=== PATIENT | female | born 1945 | race African-American/Black ===

== ENCOUNTER 2017-01-28 18:45 | Inpatient (IN) | payer MEDICARE, MEDICAID ==
[~2017-01-28] VITALS: Ht 170.2 cm; Wt 59.0 kg
[~2017-01-28 18:45] MED LIST: AMIT10TA6 PO; AMLO2.5T45 *; ATOR10TA69 PO; ATOR40TA70 PO; CLON0.1T PO; CLOP75TA33 PO; DOXA2TAB2 PO; ESCI10TA54 PO; GABA-531 PO; LEVE500T19 PO; LOSA50TA20 PO
[2017-01-28] MEDS ORDERED: CLONIDINE 0.1MG TABLET PO PRN (19:45)
[2017-01-28 20:00] VITALS: BP_SYST 143; BP_SYST 161; BP_DIAS 69
[2017-01-28] MEDS ORDERED: IPRATROPIUM/ALBUTEROL 0.5-3(2.5)MG/3ML NEB HHN PRN (20:00)
[2017-01-28] MEDS ORDERED: ONDANSETRON HCL 4MG/2ML VIAL IV PRN (20:00)
[2017-01-28] MEDS ORDERED: LORAZEPAM 2MG/ML CPJ IV PRN (20:00)
[2017-01-28] MEDS ORDERED: DEXTROSE 50% WATER 50ML SYRINGE IV PRN (20:00)
[2017-01-28] MEDS ORDERED: ACETAMINOPHEN 650MG/20.3ML UDC PO PRN (20:00)
[2017-01-28] MEDS ORDERED: MORPHINE SULFATE 2 MG/ML CPJ (NOT FOR IM USE) IV PRN (20:00)
[2017-01-28] MEDS ORDERED: DIPHENHYDRAMINE 50MG/ML VIAL IV PRN (20:00)
[2017-01-28] MEDS: SODIUM CHLORIDE 0.45% 1,000 ML IV SCH (20:18)
[2017-01-28] MEDS: INSULIN LISPRO 100 UNITS/ML SUBCUT SCH (21:00)
[2017-01-28] MEDS: BLOOD SUGAR DIAGNOSTIC STRIP TEST SCH (21:00)
[2017-01-28] MEDS: HYDRALAZINE HCL 25MG TABLET PO SCH (22:00)
[2017-01-28] MEDS: GABAPENTIN 300MG CAPSULE PO SCH (22:15)
[2017-01-28] MEDS: ATORVASTATIN CALCIUM 40MG TABLET PO SCH (22:15)
[2017-01-28] MEDS: AMLODIPINE 5MG TABLET PO SCH (22:16)
[2017-01-28] MEDS: LEVETIRACETAM 500MG TABLET PO SCH (22:16)
[2017-01-28] MEDS: TRAZODONE HCL 50MG TABLET PO SCH (22:16)
[2017-01-29] MEDS ORDERED: INFLUENZA VIRUS VACCINE 0.5ML SYR IM ONE (02:15)
[2017-01-29] MEDS: GABAPENTIN 300MG CAPSULE PO SCH ×3 (06:34→21:01)
[2017-01-29] MEDS: HYDRALAZINE HCL 25MG TABLET PO SCH ×3 (06:34→21:02)
[2017-01-29] MEDS: BLOOD SUGAR DIAGNOSTIC STRIP TEST SCH ×4 (06:37→21:02)
[2017-01-29 07:05] LABS: HEMATOCRIT 26.5 % (36.0-48.0); HEMOGLOBIN 8.5 g/dL (12.0-16.0); MEAN CORPUSCULAR HEMOGLOBIN 27.3 pg (28.0-32.0); MEAN CORPUSCULAR HGB CONC 31.9 g/dL (31.0-37.0); MEAN CORPUSCULAR VOLUME 85.5 fL (81.0-99.0); PLATELET 130 x1000/uL (130-400); RED CELL DISTRIBUTION WIDTH 12.2 % (11.6-14.6); WHITE BLOOD COUNT 3.9 x1000/uL (4.5-11.0)
[2017-01-29 08:00] VITALS: BP 121/76
[2017-01-29 08:05] LABS: CALCIUM 8.1 mg/dL (8.5-10.1)
[2017-01-29] MEDS: APIXABAN 2.5 MG TABLET PO SCH ×2 (08:16→16:31)
[2017-01-29] MEDS: ASPIRIN 81MG EC TABLET PO SCH (08:16)
[2017-01-29] MEDS: ZINC SULFATE 220 MG ( 50 ) CAPSULE PO SCH (08:16)
[2017-01-29] MEDS: FAMOTIDINE 20MG TABLET PO SCH (08:16)
[2017-01-29] MEDS: AMLODIPINE 5MG TABLET PO SCH ×2 (08:16→21:00)
[2017-01-29] MEDS: LEVETIRACETAM 500MG TABLET PO SCH ×2 (08:16→21:01)
[2017-01-29] MEDS: FOLIC ACID 1MG TABLET PO SCH (08:16)
[2017-01-29] MEDS: INSULIN LISPRO 100 UNITS/ML SUBCUT SCH ×4 (08:17→21:03)
[2017-01-29] MEDS: SODIUM CHLORIDE 0.45% 1,000 ML IV SCH ×2 (08:48→21:04)
[2017-01-29] MEDS ORDERED: TRAMADOL 50MG TABLET PO PRN (09:30)
[2017-01-29] MEDS: HYDROCODONE/ACETAMINOPHEN 5/325MG TABLET PO PRN ×2 (14:41→21:01)
[2017-01-29] MEDS ORDERED: HYDROCODONE/ACETAMINOPHEN 5/325MG TABLET PO PRN (14:45)
[2017-01-29 20:00] VITALS: BP 112/76
[2017-01-29] MEDS: ATORVASTATIN CALCIUM 40MG TABLET PO SCH (21:01)
[2017-01-29] MEDS: TRAZODONE HCL 50MG TABLET PO SCH (21:01)
[2017-01-30] MEDS: GABAPENTIN 300MG CAPSULE PO SCH ×3 (05:41→21:45)
[2017-01-30] MEDS: HYDRALAZINE HCL 25MG TABLET PO SCH ×3 (05:41→21:46)
[2017-01-30] MEDS: HYDROCODONE/ACETAMINOPHEN 5/325MG TABLET PO PRN ×3 (05:42→20:13)
[2017-01-30] MEDS: BLOOD SUGAR DIAGNOSTIC STRIP TEST SCH ×4 (06:22→21:50)
[2017-01-30] MEDS: INSULIN LISPRO 100 UNITS/ML SUBCUT SCH ×4 (06:22→21:57)
[2017-01-30 08:00] VITALS: BP 136/99
[2017-01-30] MEDS: FAMOTIDINE 20MG TABLET PO SCH (09:00)
[2017-01-30] MEDS: LEVETIRACETAM 500MG TABLET PO SCH ×2 (09:00→21:45)
[2017-01-30] MEDS: ASPIRIN 81MG EC TABLET PO SCH (09:00)
[2017-01-30] MEDS: ZINC SULFATE 220 MG ( 50 ) CAPSULE PO SCH (09:00)
[2017-01-30] MEDS: FOLIC ACID 1MG TABLET PO SCH (09:01)
[2017-01-30] MEDS: APIXABAN 2.5 MG TABLET PO SCH ×2 (09:01→17:25)
[2017-01-30] MEDS: AMLODIPINE 5MG TABLET PO SCH ×2 (09:01→21:46)
[2017-01-30 20:00] VITALS: BP 123/78
[2017-01-30] MEDS: ATORVASTATIN CALCIUM 40MG TABLET PO SCH (21:45)
[2017-01-30] MEDS: TRAZODONE HCL 50MG TABLET PO SCH (21:47)
[2017-01-31] MEDS: BLOOD SUGAR DIAGNOSTIC STRIP TEST SCH ×4 (06:04→21:13)
[2017-01-31] MEDS: INSULIN LISPRO 100 UNITS/ML SUBCUT SCH ×4 (06:04→21:13)
[2017-01-31] MEDS: GABAPENTIN 300MG CAPSULE PO SCH ×3 (06:06→21:07)
[2017-01-31] MEDS: HYDRALAZINE HCL 25MG TABLET PO SCH ×3 (06:07→21:08)
[2017-01-31 08:00] VITALS: BP 140/60
[2017-01-31] MEDS ORDERED: MUPIROCIN 2% OINT 22GM TOP SCH (09:00)
[2017-01-31] MEDS: LEVETIRACETAM 500MG TABLET PO SCH ×2 (10:04→21:07)
[2017-01-31] MEDS: AMLODIPINE 5MG TABLET PO SCH ×2 (10:04→21:09)
[2017-01-31] MEDS: ASPIRIN 81MG EC TABLET PO SCH (10:04)
[2017-01-31] MEDS: FOLIC ACID 1MG TABLET PO SCH (10:04)
[2017-01-31] MEDS: APIXABAN 2.5 MG TABLET PO SCH ×2 (10:04→18:01)
[2017-01-31] MEDS: FAMOTIDINE 20MG TABLET PO SCH (10:04)
[2017-01-31] MEDS: ZINC SULFATE 220 MG ( 50 ) CAPSULE PO SCH (10:04)
[2017-01-31] MEDS: MUPIROCIN 2% OINT 22GM TOP SCH ×2 (10:05→18:03)
[2017-01-31] MEDS: HYDROCODONE/ACETAMINOPHEN 5/325MG TABLET PO PRN ×3 (11:14→23:42)
[2017-01-31 11:15] VITALS: BP 122/85
[2017-01-31 13:30] VITALS: BP 132/63
[2017-01-31 17:30] VITALS: BP 143/59
[2017-01-31 20:00] VITALS: BP 141/72
[2017-01-31] MEDS: ATORVASTATIN CALCIUM 40MG TABLET PO SCH (21:07)
[2017-01-31] MEDS: TRAZODONE HCL 50MG TABLET PO SCH (21:07)
[2017-02-01] VITALS (7 sets, daily range): BP systolic 116–130; BP diastolic 53–91
[2017-02-01] MEDS: HYDRALAZINE HCL 25MG TABLET PO SCH ×3 (06:06→22:00)
[2017-02-01] MEDS: GABAPENTIN 300MG CAPSULE PO SCH ×3 (06:06→21:46)
[2017-02-01] MEDS: POLYVINYL ALCOHOL OPHTH DROPS 15ML BOTHEYE PRN ×3 (06:06→21:26)
[2017-02-01 06:17] LABS: BASOPHILS % 0.8 % (0.0-2.0); EOSINOPHILS % 3.1 % (0.0-5.0); HEMATOCRIT. 24.3 % (36.0-48.0); HEMOGLOBIN. 7.8 g/dL (12.0-16.0); LYMPHOCYTES % 26.7 % (20.0-50.0); MEAN CORPUSCULAR HEMOGLOBIN 27.8 pg (28.0-32.0); MEAN CORPUSCULAR HGB CONC 32.1 g/dL (31.0-37.0); MEAN CORPUSCULAR VOLUME 86.7 fL (81.0-99.0); MEAN PLATELET VOLUME 8.7 fl (7.4-10.4); MONOCYTES % 9.3 % (2.0-8.0); NEUTROPHILS % 60.1 % (40.0-76.0); PLATELET 116 x1000/uL (130-400); RED CELL DISTRIBUTION WIDTH 12.3 % (11.6-14.6)
[2017-02-01] MEDS: BLOOD SUGAR DIAGNOSTIC STRIP TEST SCH ×4 (06:37→21:47)
[2017-02-01] MEDS: INSULIN LISPRO 100 UNITS/ML SUBCUT SCH ×4 (06:37→22:05)
[2017-02-01 06:59] LABS: CALCIUM 7.8 mg/dL (8.5-10.1)
[2017-02-01] MEDS: FAMOTIDINE 20MG TABLET PO SCH (08:33)
[2017-02-01] MEDS: LEVETIRACETAM 500MG TABLET PO SCH ×2 (08:33→21:46)
[2017-02-01] MEDS: APIXABAN 2.5 MG TABLET PO SCH (08:33)
[2017-02-01] MEDS: FOLIC ACID 1MG TABLET PO SCH (08:33)
[2017-02-01] MEDS: ZINC SULFATE 220 MG ( 50 ) CAPSULE PO SCH (08:33)
[2017-02-01] MEDS: ASPIRIN 81MG EC TABLET PO SCH (08:33)
[2017-02-01] MEDS: AMLODIPINE 5MG TABLET PO SCH ×2 (08:34→21:46)
[2017-02-01] MEDS: HYDROCODONE/ACETAMINOPHEN 5/325MG TABLET PO PRN ×2 (08:34→16:34)
[2017-02-01] MEDS: MUPIROCIN 2% OINT 22GM TOP SCH ×2 (08:37→17:38)
[2017-02-01] MEDS: ATORVASTATIN CALCIUM 40MG TABLET PO SCH (21:46)
[2017-02-01] MEDS: TRAZODONE HCL 50MG TABLET PO SCH (21:46)
[2017-02-02] MEDS: HYDROCODONE/ACETAMINOPHEN 5/325MG TABLET PO PRN ×3 (02:27→15:34)
[2017-02-02] MEDS: HYDRALAZINE HCL 25MG TABLET PO SCH ×3 (06:31→22:00)
[2017-02-02] MEDS: GABAPENTIN 300MG CAPSULE PO SCH ×3 (06:31→22:46)
[2017-02-02] MEDS: BLOOD SUGAR DIAGNOSTIC STRIP TEST SCH ×4 (06:39→21:08)
[2017-02-02] MEDS: INSULIN LISPRO 100 UNITS/ML SUBCUT SCH ×4 (06:39→22:51)
[2017-02-02 07:11] LABS: BASOPHILS % 0.8 % (0.0-2.0); EOSINOPHILS % 3.4 % (0.0-5.0); HEMATOCRIT. 29.2 % (36.0-48.0); HEMOGLOBIN. 9.5 g/dL (12.0-16.0); LYMPHOCYTES % 32.7 % (20.0-50.0); MEAN CORPUSCULAR HEMOGLOBIN 27.9 pg (28.0-32.0); MEAN CORPUSCULAR HGB CONC 32.6 g/dL (31.0-37.0); MEAN CORPUSCULAR VOLUME 85.8 fL (81.0-99.0); MEAN PLATELET VOLUME 9.1 fl (7.4-10.4); MONOCYTES % 9.9 % (2.0-8.0); NEUTROPHILS % 53.2 % (40.0-76.0); PLATELET 130 x1000/uL (130-400); RED BLOOD CELL COUNT 3.41 mill/uL (4.2-5.4); WHITE BLOOD COUNT 4.3 x1000/uL (4.5-11.0)
[2017-02-02 07:31] LABS: CALCIUM 8.1 mg/dL (8.5-10.1); MAGNESIUM 2.1 mg/dL (1.8-2.4)
[2017-02-02 08:00] VITALS: BP 135/67
[2017-02-02] MEDS: ZINC SULFATE 220 MG ( 50 ) CAPSULE PO SCH (08:17)
[2017-02-02] MEDS: ASPIRIN 81MG EC TABLET PO SCH (08:18)
[2017-02-02] MEDS: FAMOTIDINE 20MG TABLET PO SCH (08:18)
[2017-02-02] MEDS: MUPIROCIN 2% OINT 22GM TOP SCH ×2 (08:18→16:22)
[2017-02-02] MEDS: AMLODIPINE 5MG TABLET PO SCH ×2 (08:18→21:09)
[2017-02-02] MEDS: LEVETIRACETAM 500MG TABLET PO SCH ×2 (08:18→21:09)
[2017-02-02] MEDS: FOLIC ACID 1MG TABLET PO SCH (08:18)
[2017-02-02] MEDS: POLYVINYL ALCOHOL OPHTH DROPS 15ML BOTHEYE PRN ×2 (08:23→16:23)
[2017-02-02 20:00] VITALS: BP 155/71
[2017-02-02] MEDS: ATORVASTATIN CALCIUM 40MG TABLET PO SCH (21:09)
[2017-02-02] MEDS: TRAZODONE HCL 50MG TABLET PO SCH (21:09)
[2017-02-03 06:13] LABS: BASOPHILS % 0.6 % (0.0-2.0); HEMATOCRIT. 29.7 % (36.0-48.0); HEMOGLOBIN. 9.7 g/dL (12.0-16.0); LYMPHOCYTES % 33.2 % (20.0-50.0); MEAN CORPUSCULAR HEMOGLOBIN 28.1 pg (28.0-32.0); MEAN CORPUSCULAR HGB CONC 32.8 g/dL (31.0-37.0); MEAN CORPUSCULAR VOLUME 85.9 fL (81.0-99.0); MEAN PLATELET VOLUME 9.7 fl (7.4-10.4); MONOCYTES % 9.6 % (2.0-8.0); NEUTROPHILS % 52.6 % (40.0-76.0); PLATELET 147 x1000/uL (130-400); RED BLOOD CELL COUNT 3.46 mill/uL (4.2-5.4); RED CELL DISTRIBUTION WIDTH 12.9 % (11.6-14.6); WHITE BLOOD COUNT 4.6 x1000/uL (4.5-11.0)
[2017-02-03] MEDS: HYDRALAZINE HCL 25MG TABLET PO SCH ×3 (06:34→22:00)
[2017-02-03] MEDS: GABAPENTIN 300MG CAPSULE PO SCH ×3 (06:34→22:31)
[2017-02-03] MEDS: POLYVINYL ALCOHOL OPHTH DROPS 15ML BOTHEYE PRN (06:35)
[2017-02-03] MEDS: HYDROCODONE/ACETAMINOPHEN 5/325MG TABLET PO PRN ×2 (06:35→17:27)
[2017-02-03 06:38] LABS: CALCIUM 8.2 mg/dL (8.5-10.1)
[2017-02-03] MEDS: INSULIN LISPRO 100 UNITS/ML SUBCUT SCH ×4 (06:38→21:00)
[2017-02-03] MEDS: BLOOD SUGAR DIAGNOSTIC STRIP TEST SCH ×4 (06:39→21:00)
[2017-02-03 08:00] VITALS: BP 135/72
[2017-02-03] MEDS: ZINC SULFATE 220 MG ( 50 ) CAPSULE PO SCH (08:33)
[2017-02-03] MEDS: AMLODIPINE 5MG TABLET PO SCH ×2 (08:33→22:27)
[2017-02-03] MEDS: FAMOTIDINE 20MG TABLET PO SCH (08:33)
[2017-02-03] MEDS: LEVETIRACETAM 500MG TABLET PO SCH ×2 (08:33→22:27)
[2017-02-03] MEDS: FOLIC ACID 1MG TABLET PO SCH (08:33)
[2017-02-03] MEDS: ASPIRIN 81MG EC TABLET PO SCH (08:33)
[2017-02-03] MEDS: MUPIROCIN 2% OINT 22GM TOP SCH ×2 (08:34→16:55)
[2017-02-03] MEDS ORDERED: LORAZEPAM 0.5MG TABLET PO PRN (16:00)
[2017-02-03] MEDS ORDERED: MORPHINE SULFATE 2 MG/ML CPJ (NOT FOR IM USE) IV PRN (16:00)
[2017-02-03] MEDS ORDERED: ACETAMINOPHEN 650MG/20.3ML UDC PO PRN (16:10)
[2017-02-03 20:00] VITALS: BP 115/50
[2017-02-03] MEDS: ATORVASTATIN CALCIUM 40MG TABLET PO SCH (22:27)
[2017-02-03] MEDS: TRAZODONE HCL 50MG TABLET PO SCH (22:27)
[2017-02-04] MEDS: GABAPENTIN 300MG CAPSULE PO SCH ×3 (06:22→21:51)
[2017-02-04] MEDS: HYDRALAZINE HCL 25MG TABLET PO SCH ×3 (06:23→21:52)
[2017-02-04] MEDS: BLOOD SUGAR DIAGNOSTIC STRIP TEST SCH ×4 (06:54→21:53)
[2017-02-04] MEDS: INSULIN LISPRO 100 UNITS/ML SUBCUT SCH ×4 (06:54→21:58)
[2017-02-04 07:17] LABS: BASOPHILS % 0.9 % (0.0-2.0); EOSINOPHILS % 3.9 % (0.0-5.0); HEMATOCRIT. 28.5 % (36.0-48.0); HEMOGLOBIN. 9.3 g/dL (12.0-16.0); MEAN CORPUSCULAR HGB CONC 32.7 g/dL (31.0-37.0); MEAN CORPUSCULAR VOLUME 85.7 fL (81.0-99.0); MEAN PLATELET VOLUME 9.5 fl (7.4-10.4); MONOCYTES % 9.2 % (2.0-8.0); PLATELET 140 x1000/uL (130-400); RED BLOOD CELL COUNT 3.32 mill/uL (4.2-5.4); RED CELL DISTRIBUTION WIDTH 12.7 % (11.6-14.6); WHITE BLOOD COUNT 4.5 x1000/uL (4.5-11.0)
[2017-02-04 08:00] VITALS: BP 124/59
[2017-02-04 08:13] LABS: CALCIUM 8.3 mg/dL (8.5-10.1)
[2017-02-04] MEDS: ZINC SULFATE 220 MG ( 50 ) CAPSULE PO SCH (08:19)
[2017-02-04] MEDS: ASPIRIN 81MG EC TABLET PO SCH (08:20)
[2017-02-04] MEDS: FAMOTIDINE 20MG TABLET PO SCH (08:20)
[2017-02-04] MEDS: FOLIC ACID 1MG TABLET PO SCH (08:20)
[2017-02-04] MEDS: LEVETIRACETAM 500MG TABLET PO SCH ×2 (08:20→21:52)
[2017-02-04] MEDS: AMLODIPINE 5MG TABLET PO SCH ×2 (08:20→21:52)
[2017-02-04] MEDS: POLYVINYL ALCOHOL OPHTH DROPS 15ML BOTHEYE PRN (08:23)
[2017-02-04] MEDS: MUPIROCIN 2% OINT 22GM TOP SCH ×2 (08:23→17:47)
[2017-02-04] MEDS: HYDROCODONE/ACETAMINOPHEN 5/325MG TABLET PO PRN (12:06)
[2017-02-04] MEDS: TRAMADOL 50MG TABLET PO PRN (18:52)
[2017-02-04 20:00] VITALS: BP 134/78
[2017-02-04] MEDS: ATORVASTATIN CALCIUM 40MG TABLET PO SCH (21:51)
[2017-02-04] MEDS: TRAZODONE HCL 50MG TABLET PO SCH (21:52)
[2017-02-05] MEDS: BLOOD SUGAR DIAGNOSTIC STRIP TEST SCH ×4 (06:02→21:18)
[2017-02-05] MEDS: HYDRALAZINE HCL 25MG TABLET PO SCH ×3 (06:02→21:17)
[2017-02-05] MEDS: GABAPENTIN 300MG CAPSULE PO SCH ×3 (06:02→21:16)
[2017-02-05] MEDS: INSULIN LISPRO 100 UNITS/ML SUBCUT SCH ×4 (06:54→21:23)
[2017-02-05 08:00] VITALS: BP 133/73
[2017-02-05] MEDS: LEVETIRACETAM 500MG TABLET PO SCH ×2 (09:24→21:17)
[2017-02-05] MEDS: ZINC SULFATE 220 MG ( 50 ) CAPSULE PO SCH (09:24)
[2017-02-05] MEDS: MUPIROCIN 2% OINT 22GM TOP SCH ×2 (09:24→16:34)
[2017-02-05] MEDS: ASPIRIN 81MG EC TABLET PO SCH (09:24)
[2017-02-05] MEDS: AMLODIPINE 5MG TABLET PO SCH ×2 (09:25→21:17)
[2017-02-05] MEDS: HYDROCODONE/ACETAMINOPHEN 5/325MG TABLET PO PRN ×2 (09:25→13:12)
[2017-02-05] MEDS: FAMOTIDINE 20MG TABLET PO SCH (09:25)
[2017-02-05] MEDS: FOLIC ACID 1MG TABLET PO SCH (09:25)
[2017-02-05 20:00] VITALS: BP 148/75
[2017-02-05] MEDS: ATORVASTATIN CALCIUM 40MG TABLET PO SCH (21:16)
[2017-02-05] MEDS: AMITRIPTYLINE 10MG TABLET PO SCH (21:16)
[2017-02-05] MEDS: TRAZODONE HCL 50MG TABLET PO SCH (21:17)
[2017-02-06] MEDS: GABAPENTIN 300MG CAPSULE PO SCH ×3 (06:13→23:33)
[2017-02-06] MEDS: HYDRALAZINE HCL 25MG TABLET PO SCH ×3 (06:13→22:00)
[2017-02-06] MEDS: BLOOD SUGAR DIAGNOSTIC STRIP TEST SCH ×4 (06:13→21:56)
[2017-02-06] MEDS: INSULIN LISPRO 100 UNITS/ML SUBCUT SCH ×4 (06:57→22:01)
[2017-02-06 08:00] VITALS: BP 149/70
[2017-02-06] MEDS: FOLIC ACID 1MG TABLET PO SCH (08:52)
[2017-02-06] MEDS: LEVETIRACETAM 500MG TABLET PO SCH ×2 (08:52→21:55)
[2017-02-06] MEDS: ZINC SULFATE 220 MG ( 50 ) CAPSULE PO SCH (08:52)
[2017-02-06] MEDS: ASPIRIN 81MG EC TABLET PO SCH (08:53)
[2017-02-06] MEDS: FAMOTIDINE 20MG TABLET PO SCH (08:53)
[2017-02-06] MEDS: POLYVINYL ALCOHOL OPHTH DROPS 15ML BOTHEYE PRN ×2 (08:53→16:27)
[2017-02-06] MEDS: AMLODIPINE 5MG TABLET PO SCH ×2 (08:53→21:56)
[2017-02-06] MEDS: MUPIROCIN 2% OINT 22GM TOP SCH ×2 (08:53→16:27)
[2017-02-06] MEDS: HYDROCODONE/ACETAMINOPHEN 5/325MG TABLET PO PRN ×2 (10:48→16:50)
[2017-02-06 20:44] VITALS: BP 141/86
[2017-02-06] MEDS: ATORVASTATIN CALCIUM 40MG TABLET PO SCH (21:55)
[2017-02-06] MEDS: AMITRIPTYLINE 10MG TABLET PO SCH (21:55)
[2017-02-06] MEDS: TRAZODONE HCL 50MG TABLET PO SCH (21:55)
[2017-02-07] MEDS: HYDRALAZINE HCL 25MG TABLET PO SCH ×3 (06:15→22:00)
[2017-02-07] MEDS: GABAPENTIN 300MG CAPSULE PO SCH ×3 (06:15→21:49)
[2017-02-07] MEDS: BLOOD SUGAR DIAGNOSTIC STRIP TEST SCH ×4 (06:15→21:46)
[2017-02-07 08:00] VITALS: BP 138/100
[2017-02-07] MEDS: ZINC SULFATE 220 MG ( 50 ) CAPSULE PO SCH (08:02)
[2017-02-07] MEDS: ASPIRIN 81MG EC TABLET PO SCH (08:02)
[2017-02-07] MEDS: FAMOTIDINE 20MG TABLET PO SCH (08:02)
[2017-02-07] MEDS: AMLODIPINE 5MG TABLET PO SCH ×2 (08:02→21:39)
[2017-02-07] MEDS: FOLIC ACID 1MG TABLET PO SCH (08:02)
[2017-02-07] MEDS: MUPIROCIN 2% OINT 22GM TOP SCH ×2 (08:04→16:20)
[2017-02-07] MEDS: LEVETIRACETAM 500MG TABLET PO SCH ×2 (08:04→21:38)
[2017-02-07] MEDS: POLYVINYL ALCOHOL OPHTH DROPS 15ML BOTHEYE PRN ×2 (08:04→16:20)
[2017-02-07] MEDS: HYDROCODONE/ACETAMINOPHEN 5/325MG TABLET PO PRN ×4 (08:04→21:40)
[2017-02-07] MEDS: INSULIN LISPRO 100 UNITS/ML SUBCUT SCH ×4 (08:06→21:41)
[2017-02-07 19:42] VITALS: BP 119/56
[2017-02-07] MEDS: ATORVASTATIN CALCIUM 40MG TABLET PO SCH (21:38)
[2017-02-07] MEDS: AMITRIPTYLINE 10MG TABLET PO SCH (21:38)
[2017-02-07] MEDS: TRAZODONE HCL 50MG TABLET PO SCH (21:38)
[2017-02-08] MEDS: HYDROCODONE/ACETAMINOPHEN 5/325MG TABLET PO PRN ×2 (03:24→15:43)
[2017-02-08] MEDS: GABAPENTIN 300MG CAPSULE PO SCH ×3 (05:43→21:51)
[2017-02-08] MEDS: HYDRALAZINE HCL 25MG TABLET PO SCH ×3 (05:44→21:51)
[2017-02-08] MEDS: BLOOD SUGAR DIAGNOSTIC STRIP TEST SCH ×4 (05:44→20:56)
[2017-02-08] MEDS: TRAMADOL 50MG TABLET PO PRN (07:54)
[2017-02-08 08:00] VITALS: BP 119/59
[2017-02-08] MEDS: ZINC SULFATE 220 MG ( 50 ) CAPSULE PO SCH (08:23)
[2017-02-08] MEDS: ASPIRIN 81MG EC TABLET PO SCH (08:24)
[2017-02-08] MEDS: INSULIN LISPRO 100 UNITS/ML SUBCUT SCH ×4 (08:24→20:55)
[2017-02-08] MEDS: FAMOTIDINE 20MG TABLET PO SCH (08:24)
[2017-02-08] MEDS: AMLODIPINE 5MG TABLET PO SCH ×2 (08:24→20:56)
[2017-02-08] MEDS: FOLIC ACID 1MG TABLET PO SCH (08:24)
[2017-02-08] MEDS: LEVETIRACETAM 500MG TABLET PO SCH ×2 (08:24→20:56)
[2017-02-08] MEDS: MUPIROCIN 2% OINT 22GM TOP SCH ×2 (08:25→16:42)
[2017-02-08] MEDS ORDERED: TRAMADOL 50MG TABLET PO PRN (19:00)
[2017-02-08 20:00] VITALS: BP 116/67
[2017-02-08] MEDS: TRAZODONE HCL 50MG TABLET PO SCH (20:56)
[2017-02-08] MEDS: ATORVASTATIN CALCIUM 40MG TABLET PO SCH (20:56)
[2017-02-08] MEDS: AMITRIPTYLINE 10MG TABLET PO SCH (20:56)
[2017-02-09] MEDS: GABAPENTIN 300MG CAPSULE PO SCH ×2 (05:18→14:09)
[2017-02-09] MEDS: HYDRALAZINE HCL 25MG TABLET PO SCH ×2 (05:19→14:09)
[2017-02-09] MEDS: BLOOD SUGAR DIAGNOSTIC STRIP TEST SCH ×2 (06:19→11:26)
[2017-02-09] MEDS: INSULIN LISPRO 100 UNITS/ML SUBCUT SCH ×2 (07:01→13:00)
[2017-02-09 08:00] VITALS: BP 122/55
[2017-02-09] MEDS: FAMOTIDINE 20MG TABLET PO SCH (09:21)
[2017-02-09] MEDS: LEVETIRACETAM 500MG TABLET PO SCH (09:21)
[2017-02-09] MEDS: ASPIRIN 81MG EC TABLET PO SCH (09:21)
[2017-02-09] MEDS: FOLIC ACID 1MG TABLET PO SCH (09:21)
[2017-02-09] MEDS: AMLODIPINE 5MG TABLET PO SCH (09:22)
[2017-02-09] MEDS: MUPIROCIN 2% OINT 22GM TOP SCH (09:22)
[2017-02-09] MEDS: ZINC SULFATE 220 MG ( 50 ) CAPSULE PO SCH (09:22)
[2017-02-09] MEDS: HYDROCODONE/ACETAMINOPHEN 5/325MG TABLET PO PRN ×2 (09:23→14:11)
[2017-02-09] MEDS: POLYVINYL ALCOHOL OPHTH DROPS 15ML BOTHEYE PRN ×2 (09:28→14:09)
[2017-02-09 13:30] VITALS: BP 130/67
[2017-02-09 13:54] VITALS: BP 130/67
[2017-02-09 14:11] VITALS: BP 130/67
== END 2017-02-09 14:36 | disposition home health service (06) | DRG 56 ==
PROVIDERS: ADMIT Psychiatry & Neurology Neurology; ATTEND Internal Medicine
PROC: 30233N1 Transfusion of Nonautologous Red Blood Cells into Peripheral Vein, Percutaneous Approach (ICD-10-PCS; principal; 2017-02-01)
DX: I69.354 Hemiplegia and hemiparesis following cerebral infarction affecting left non-dominant side (principal); I63.9 Cerebral infarction, unspecified; G93.40 Encephalopathy, unspecified; J84.9 Interstitial pulmonary disease, unspecified; I82.403 Acute embolism and thrombosis of unspecified deep veins of lower extremity, bilateral; N17.9 Acute kidney failure, unspecified; E78.5 Hyperlipidemia, unspecified; I25.10 Atherosclerotic heart disease of native coronary artery without angina pectoris; E11.51 Type 2 diabetes mellitus with diabetic peripheral angiopathy without gangrene; E11.40 Type 2 diabetes mellitus with diabetic neuropathy, unspecified; E11.22 Type 2 diabetes mellitus with diabetic chronic kidney disease; N18.2 Chronic kidney disease, stage 2 (mild); M54.30 Sciatica, unspecified side; F32.9 Major depressive disorder, single episode, unspecified; G89.29 Other chronic pain; I65.22 Occlusion and stenosis of left carotid artery; E11.43 Type 2 diabetes mellitus with diabetic autonomic (poly)neuropathy; K31.84 Gastroparesis; D63.8 Anemia in other chronic diseases classified elsewhere; D69.6 Thrombocytopenia, unspecified; K21.9 Gastro-esophageal reflux disease without esophagitis; E11.21 Type 2 diabetes mellitus with diabetic nephropathy; F41.9 Anxiety disorder, unspecified; I13.10 Hypertensive heart and chronic kidney disease without heart failure, with stage 1 through stage 4 chronic kidney disease, or unspecified chronic kidney disease; E78.00 Pure hypercholesterolemia, unspecified; H54.8 Legal blindness, as defined in USA; K57.90 Diverticulosis of intestine, part unspecified, without perforation or abscess without bleeding; I12.9 Hypertensive chronic kidney disease with stage 1 through stage 4 chronic kidney disease, or unspecified chronic kidney disease; Z53.29 Procedure and treatment not carried out because of patient's decision for other reasons; I48.0 Paroxysmal atrial fibrillation; Z79.02 Long term (current) use of antithrombotics/antiplatelets; Z79.82 Long term (current) use of aspirin; Z86.711 Personal history of pulmonary embolism; Z88.0 Allergy status to penicillin; Z95.5 Presence of coronary angioplasty implant and graft; Z86.718 Personal history of other venous thrombosis and embolism; Z87.440 Personal history of urinary (tract) infections; Z95.828 Presence of other vascular implants and grafts
CPT/HCPCS: 36415; 80048; 82962; 83735; 85025; 85027; 86850; 86900; 86920; 92523; 93005; 93970; 97110; 97112; 97116; 97162; 97166; 97530; 97532; 97535; J1815; P9016

== ENCOUNTER 2017-06-06 14:37 | Inpatient (IN) | payer MEDICARE, MEDICAID ==
[~2017-06-06] VITALS: Ht 172.7 cm; Wt 69.6 kg
[~2017-06-06 14:37] MED LIST changes: -AMIT10TA6 PO; -AMLO2.5T45 *; +AMLO2.5T45 PO; -ATOR10TA69 PO; -ATOR40TA70 PO; -CLON0.1T PO; -CLOP75TA33 PO; -DOXA2TAB2 PO; -ESCI10TA54 PO; -LEVE500T19 PO; -LOSA50TA20 PO
[2017-06-06] MEDS ORDERED: SODIUM CHLORIDE 0.9% 1,000 ML IV ONE (14:53)
[2017-06-06] MEDS ORDERED: LEVOFLOXACIN 750MG PREMIX 150 ML IV ONE (15:00)
[2017-06-06] MEDS ORDERED: MORPHINE SULFATE 4 MG/ML CPJ (NOT FOR IM USE) IV ONE (15:00)
[2017-06-06] MEDS ORDERED: ACETAMINOPHEN 325MG TABLET PO ONE (15:00)
[2017-06-06] MEDS ORDERED: ONDANSETRON HCL 4MG/2ML VIAL IV ONE (15:00)
[2017-06-06 15:20] LABS: BG BASE EXCESS -4.3 mmol/L (-2.0-2.0); BG CARBOXYHEMOGLOBIN 0.4 % (0.5-1.5); BG DEOXYHEMOGLOBIN 3.3 % (0.0-5.0); BG FRACTION INSPIRED OXYGEN 21; BG HCO3 ACT 19.5 mmol/L (22.0-26.0); BG METHEMOGLOBIN 0.1 % (0.0-1.5); BG OXYGEN SATURATION 96.7 % (92.0-98.5); BG OXYHEMOGLOBIN 96.2 % (94.0-97.0); BG PCO2 30.9 mmHg (35.0-45.0); BG PH 7.417 (7.350-7.450); BG PO2 89.7 mmHg (75.0-100.0); BG SAMPLE SITE RIGHT RADIAL; BG TOTAL HEMOGLOBIN 9.5 g/dL (12.0-18.0); BG VENT MODE ROOM AIR
[2017-06-06 15:23] LABS: HEMATOCRIT. 26.3 % (36.0-48.0); HEMOGLOBIN. 8.6 g/dL (12.0-16.0); MEAN CORPUSCULAR HEMOGLOBIN 27.8 pg (28.0-32.0); MEAN CORPUSCULAR VOLUME 84.7 fL (81.0-99.0); MEAN PLATELET VOLUME 9.3 fl (7.4-10.4); PLATELET 145 x1000/uL (130-400); RED BLOOD CELL COUNT 3.11 mill/uL (4.2-5.4); RED CELL DISTRIBUTION WIDTH 13.5 % (11.6-14.6)
[2017-06-06 15:27] LABS: INR 1.1; PROTHROMBIN TIME 11.4 sec
[2017-06-06 15:29] LABS: CHLORIDE 105 mEq/L (98-107)
[2017-06-06 15:30] LABS: CARBON DIOXIDE 22 mEq/L (21-32)
[2017-06-06 15:34] LABS: ETHANOL BLOOD < 10 mg/dL
[2017-06-06 15:36] LABS: TROPONIN I < 0.02 ng/mL (0.00-0.04)
[2017-06-06 15:37] LABS: PHENOBARBITAL < 2.1 ug/mL (15.0-40.0); PHENYTOIN < 0.4 ug/mL (10-20)
[2017-06-06 15:38] LABS: CARBAMAZEPINE < 0.5 ug/mL (4-12); VALPROIC ACID < 3.0 ug/mL (50-100)
[2017-06-06] MEDS ORDERED: PHENYTOIN SODIUM 1,000 MG in SODIUM CHLORIDE 0.9% 100 ML IV NR (17:15)
[2017-06-06] MEDS ORDERED: LEVETIRACETAM 1,000 MG in SODIUM CHLORIDE 0.9% 100 ML IV NR (17:15)
[2017-06-06 17:24] LABS: PLATELET ESTIMATE NORMAL
[2017-06-06] MEDS ORDERED: LORAZEPAM 2MG/ML CPJ IV PRN (18:00)
[2017-06-06] MEDS ORDERED: ENOXAPARIN 40MG/0.4ML SYR SUBCUT SCH (18:00)
[2017-06-06] MEDS ORDERED: GUAIFENESIN 200MG/10ML SUGAR FREE UDC PO PRN (18:00)
[2017-06-06] MEDS ORDERED: IPRATROPIUM/ALBUTEROL 0.5-3(2.5)MG/3ML NEB INH PRN (18:00)
[2017-06-06] MEDS ORDERED: DIPHENHYDRAMINE 50MG/ML VIAL IV PRN (18:00)
[2017-06-06] MEDS ORDERED: DEXTROSE 50% WATER 50ML SYRINGE IV PRN (18:00)
[2017-06-06] MEDS ORDERED: NITROGLYCERIN 0.4MG TABLET SL SL PRN (18:00)
[2017-06-06] MEDS ORDERED: DOCUSATE SODIUM 100MG CAPSULE PO PRN (18:00)
[2017-06-06 18:07] LABS: CLARITY URINE CLEAR (CLEAR); COLOR URINE YELLOW (YELLOW); GLUCOSE URINE NEGATIVE (NEGATIVE); KETONES URINE NEGATIVE (NEGATIVE); LEUKOCYTE ESTERASE URINE NEGATIVE (NEGATIVE); NITRITE URINE NEGATIVE (NEGATIVE); OCCULT BLOOD URINE NEGATIVE (NEGATIVE); PROTEIN URINE 3+ (NEGATIVE); SPECIFIC GRAVITY URINE 1.015 (1.005-1.030)
[2017-06-06] MEDS ORDERED: NA PHOS,M-B/NA PHOS,DI-BA ENEMA 118ML PR PRN (19:00)
[2017-06-06 19:15] LABS: FOLIC ACID (FOLATE) SERUM > 20.00 ng/mL (>5.38); VITAMIN B12 SERUM > 2000 pg/mL (211-911)
[2017-06-06] MEDS: ACETAMINOPHEN 325MG TABLET PO PRN (20:11)
[2017-06-06 21:00] VITALS: BP 121/75
[2017-06-06] MEDS: BLOOD SUGAR DIAGNOSTIC STRIP TEST SCH (21:00)
[2017-06-06 21:28] VITALS: BP 121/75
[2017-06-06] MEDS: CARVEDILOL 3.125 MG TABLET PO SCH (21:30)
[2017-06-06] MEDS ORDERED: CEFTRIAXONE 1 G PREMIX 50 ML IV SCH ×2 (21:45→22:30)
[2017-06-06] MEDS: LEVETIRACETAM 500MG TABLET PO SCH (23:13)
[2017-06-06] MEDS: PHENYTOIN SODIUM EXTENDED 100MG CAPSULE PO SCH (23:13)
[2017-06-06] MEDS: INSULIN LISPRO 100 UNITS/ML SUBCUT SCH (23:19)
[2017-06-06] MEDS: APIXABAN 2.5 MG TABLET PO SCH (23:31)
[2017-06-06] MEDS: CEFTRIAXONE 1 G PREMIX 50 ML IV SCH (23:31)
[2017-06-06 23:44] LABS: CREATINE KINASE 72 IU/L (26-192); CREATINE KINASE MB FRACTION 1.3 ng/mL (0.5-3.6); TROPONIN I < 0.02 ng/mL (0.00-0.04)
[2017-06-07] VITALS: BP 105/47
[2017-06-07 04:00] VITALS: BP 113/77
[2017-06-07] MEDS: ACETAMINOPHEN 325MG TABLET PO PRN ×4 (05:00→20:12)
[2017-06-07] MEDS: BLOOD SUGAR DIAGNOSTIC STRIP TEST SCH ×4 (06:07→21:05)
[2017-06-07] MEDS: INSULIN LISPRO 100 UNITS/ML SUBCUT SCH ×4 (06:25→21:00)
[2017-06-07 06:46] LABS: CREATINE KINASE 73 IU/L (26-192); CREATINE KINASE MB FRACTION 1.2 ng/mL (0.5-3.6); TROPONIN I < 0.02 ng/mL (0.00-0.04)
[2017-06-07 08:00] VITALS: BP 123/83
[2017-06-07] MEDS: ASPIRIN 325MG EC TABLET PO SCH (09:37)
[2017-06-07] MEDS: PANTOPRAZOLE SODIUM 40 MG/VIAL IV SCH (09:37)
[2017-06-07] MEDS: CARVEDILOL 3.125 MG TABLET PO SCH ×2 (09:38→21:05)
[2017-06-07] MEDS: ZINC SULFATE 220 MG ( 50 ) CAPSULE PO SCH (09:38)
[2017-06-07] MEDS: LEVETIRACETAM 500MG TABLET PO SCH (09:38)
[2017-06-07] MEDS: APIXABAN 2.5 MG TABLET PO SCH ×2 (09:38→17:44)
[2017-06-07 12:00] VITALS: BP 122/78
[2017-06-07] MEDS: ONDANSETRON HCL 4MG/2ML VIAL IV PRN ×2 (12:45→22:24)
[2017-06-07] MEDS ORDERED: APIX2.5T PO (15:11)
[2017-06-07] MEDS ORDERED: CLON0.1T PO (15:11)
[2017-06-07] MEDS ORDERED: ESCI10TA54 PO (15:11)
[2017-06-07] MEDS ORDERED: HYDR100T26 PO (15:11)
[2017-06-07] MEDS ORDERED: SULF15DR26 EACHEYE (15:11)
[2017-06-07] MEDS ORDERED: ATOR40TA70 PO (15:11)
[2017-06-07] MEDS ORDERED: LEVA15HF4 IH (15:11)
[2017-06-07 16:00] VITALS: BP 132/65
[2017-06-07 20:00] VITALS: BP 143/69
[2017-06-07] MEDS: GABAPENTIN 300MG CAPSULE PO SCH (21:05)
[2017-06-07] MEDS: PHENYTOIN SODIUM EXTENDED 100MG CAPSULE PO SCH (21:05)
[2017-06-07] MEDS: CEFTRIAXONE 1 G PREMIX 50 ML IV SCH (21:08)
[2017-06-08] VITALS: BP 138/77
[2017-06-08] MEDS: ZOLPIDEM TARTRATE 5MG TABLET PO PRN ×2 (00:14→21:28)
[2017-06-08 04:00] VITALS: BP_SYST 114; BP_SYST 115; BP_SYST 138; BP_DIAS 69; BP_DIAS 80; BP_DIAS 91
[2017-06-08] MEDS: BLOOD SUGAR DIAGNOSTIC STRIP TEST SCH ×4 (06:25→20:37)
[2017-06-08] MEDS: GABAPENTIN 300MG CAPSULE PO SCH ×3 (06:26→21:25)
[2017-06-08] MEDS: INSULIN LISPRO 100 UNITS/ML SUBCUT SCH ×4 (06:27→20:37)
[2017-06-08 07:17] LABS: BASOPHILS % 0.4 % (0.0-2.0); EOSINOPHILS % 1.2 % (0.0-5.0); HEMOGLOBIN. 8.3 g/dL (12.0-16.0); LYMPHOCYTES % 13.4 % (20.0-50.0); MEAN CORPUSCULAR HEMOGLOBIN 28.3 pg (28.0-32.0); MEAN PLATELET VOLUME 9.9 fl (7.4-10.4); MONOCYTES % 10.5 % (2.0-8.0); NEUTROPHILS % 74.5 % (40.0-76.0); PLATELET 133 x1000/uL (130-400); RED BLOOD CELL COUNT 2.94 mill/uL (4.2-5.4); RED CELL DISTRIBUTION WIDTH 13.2 % (11.6-14.6)
[2017-06-08 08:00] VITALS: BP 126/80
[2017-06-08 08:10] LABS: PHENYTOIN 13.3 ug/mL (10-20)
[2017-06-08] MEDS: APIXABAN 2.5 MG TABLET PO SCH ×2 (10:00→16:26)
[2017-06-08] MEDS: ASPIRIN 325MG EC TABLET PO SCH (10:00)
[2017-06-08] MEDS: ZINC SULFATE 220 MG ( 50 ) CAPSULE PO SCH (10:00)
[2017-06-08] MEDS: CARVEDILOL 3.125 MG TABLET PO SCH ×2 (10:00→20:37)
[2017-06-08] MEDS: PANTOPRAZOLE SODIUM 40 MG/VIAL IV SCH (10:00)
[2017-06-08 12:00] VITALS: BP 127/76
[2017-06-08] MEDS: ACETAMINOPHEN 325MG TABLET PO PRN (12:42)
[2017-06-08] MEDS ORDERED: LEVOFLOXACIN 750MG PREMIX 150 ML IV SCH (14:00)
[2017-06-08] MEDS: LEVOFLOXACIN 750MG PREMIX 150 ML IV SCH (14:23)
[2017-06-08 16:00] VITALS: BP_SYST 127; BP_SYST 131; BP_SYST 141; BP_DIAS 83; BP_DIAS 94; BP_DIAS 97
[2017-06-08] MEDS: ONDANSETRON HCL 4MG/2ML VIAL IV PRN (16:26)
[2017-06-08 20:00] VITALS: BP_SYST 128; BP_SYST 147; BP_SYST 151; BP_DIAS 83; BP_DIAS 91; BP_DIAS 94
[2017-06-08] MEDS: PHENYTOIN SODIUM EXTENDED 100MG CAPSULE PO SCH (20:36)
[2017-06-08] MEDS: CEFTRIAXONE 1 G PREMIX 50 ML IV SCH (20:37)
[2017-06-09] VITALS: BP 157/98
[2017-06-09 04:00] VITALS: BP 162/70
[2017-06-09] MEDS: GABAPENTIN 300MG CAPSULE PO SCH ×3 (05:20→22:07)
[2017-06-09] MEDS: BLOOD SUGAR DIAGNOSTIC STRIP TEST SCH ×4 (05:55→21:05)
[2017-06-09] MEDS: INSULIN LISPRO 100 UNITS/ML SUBCUT SCH ×4 (06:15→21:00)
[2017-06-09] MEDS: CLONIDINE 0.1MG TABLET PO PRN ×2 (06:43→18:16)
[2017-06-09] MEDS: MAGNESIUM/ALUMINUM HYDROXIDE/SIMETHICONE 30ML UDC PO PRN (06:43)
[2017-06-09 08:00] VITALS: BP_SYST 102; BP_SYST 111; BP_SYST 143; BP_DIAS 66; BP_DIAS 69; BP_DIAS 89
[2017-06-09] MEDS: ZINC SULFATE 220 MG ( 50 ) CAPSULE PO SCH (08:38)
[2017-06-09] MEDS: ASPIRIN 325MG EC TABLET PO SCH (08:38)
[2017-06-09] MEDS: APIXABAN 2.5 MG TABLET PO SCH ×2 (08:38→17:02)
[2017-06-09] MEDS: FAMOTIDINE 20MG TABLET PO SCH (08:38)
[2017-06-09] MEDS: CARVEDILOL 3.125 MG TABLET PO SCH ×2 (08:39→21:15)
[2017-06-09] MEDS: ACETAMINOPHEN 325MG TABLET PO PRN ×2 (11:35→18:19)
[2017-06-09 12:00] VITALS: BP 147/85
[2017-06-09] MEDS: ONDANSETRON HCL 4MG/2ML VIAL IV PRN (13:00)
[2017-06-09 16:00] VITALS: BP 159/85
[2017-06-09 20:00] VITALS: BP_SYST 114; BP_SYST 128; BP_SYST 157; BP_DIAS 60; BP_DIAS 69; BP_DIAS 72
[2017-06-09] MEDS: PHENYTOIN SODIUM EXTENDED 100MG CAPSULE PO SCH (21:12)
[2017-06-09] MEDS: CEFTRIAXONE 1 G PREMIX 50 ML IV SCH (21:12)
[2017-06-09] MEDS: ZOLPIDEM TARTRATE 5MG TABLET PO PRN (22:08)
[2017-06-10] VITALS (7 sets, daily range): BP systolic 101–182; BP diastolic 51–95
[2017-06-10] MEDS: INSULIN LISPRO 100 UNITS/ML SUBCUT SCH ×4 (06:30→21:00)
[2017-06-10] MEDS: BLOOD SUGAR DIAGNOSTIC STRIP TEST SCH ×4 (06:30→21:40)
[2017-06-10] MEDS: GABAPENTIN 300MG CAPSULE PO SCH ×3 (06:35→21:36)
[2017-06-10] MEDS: ACETAMINOPHEN 325MG TABLET PO PRN ×2 (06:36→21:38)
[2017-06-10] MEDS: MAGNESIUM/ALUMINUM HYDROXIDE/SIMETHICONE 30ML UDC PO PRN (06:36)
[2017-06-10] MEDS: ZINC SULFATE 220 MG ( 50 ) CAPSULE PO SCH (09:00)
[2017-06-10] MEDS: CLONIDINE 0.1MG TABLET PO PRN (09:00)
[2017-06-10] MEDS: FAMOTIDINE 20MG TABLET PO SCH (09:00)
[2017-06-10] MEDS: APIXABAN 2.5 MG TABLET PO SCH ×2 (09:07→18:04)
[2017-06-10] MEDS: ASPIRIN 325MG EC TABLET PO SCH (10:24)
[2017-06-10] MEDS: CARVEDILOL 3.125 MG TABLET PO SCH ×2 (10:24→21:37)
[2017-06-10 12:10] LABS: HEMATOCRIT 27.5 % (36.0-48.0); MEAN CORPUSCULAR HEMOGLOBIN 27.6 pg (28.0-32.0); MEAN CORPUSCULAR VOLUME 84.6 fL (81.0-99.0); PLATELET 145 x1000/uL (130-400); RED BLOOD CELL COUNT 3.25 mill/uL (4.2-5.4); RED CELL DISTRIBUTION WIDTH 13.4 % (11.6-14.6)
[2017-06-10] MEDS: LEVOFLOXACIN 750MG PREMIX 150 ML IV SCH (14:00)
[2017-06-10] MEDS ORDERED: SODIUM POLYSTYRENE SULFONATE 15 G/60 ML BOT PO NR (15:06)
[2017-06-10] MEDS: ATORVASTATIN CALCIUM 40MG TABLET PO SCH (21:36)
[2017-06-10] MEDS: PHENYTOIN SODIUM EXTENDED 100MG CAPSULE PO SCH (21:37)
[2017-06-10] MEDS: AMLODIPINE 2.5MG TABLET PO SCH (21:37)
[2017-06-10] MEDS: CEFTRIAXONE 1 G PREMIX 50 ML IV SCH (21:41)
[2017-06-10] MEDS: ZOLPIDEM TARTRATE 5MG TABLET PO PRN (22:30)
[2017-06-11] VITALS (7 sets, daily range): BP systolic 107–183; BP diastolic 55–101
[2017-06-11] MEDS: CLONIDINE 0.1MG TABLET PO PRN ×3 (00:57→23:08)
[2017-06-11] MEDS: GABAPENTIN 300MG CAPSULE PO SCH ×3 (05:53→21:12)
[2017-06-11] MEDS: BLOOD SUGAR DIAGNOSTIC STRIP TEST SCH ×4 (05:56→20:34)
[2017-06-11] MEDS: INSULIN LISPRO 100 UNITS/ML SUBCUT SCH ×4 (06:20→21:12)
[2017-06-11 06:29] LABS: BASOPHILS % 0.9 % (0.0-2.0); EOSINOPHILS % 2.8 % (0.0-5.0); LYMPHOCYTES % 27.4 % (20.0-50.0); MEAN CORPUSCULAR HEMOGLOBIN 27.2 pg (28.0-32.0); MEAN CORPUSCULAR VOLUME 83.6 fL (81.0-99.0); MEAN PLATELET VOLUME 8.8 fl (7.4-10.4); MONOCYTES % 9.4 % (2.0-8.0); NEUTROPHILS % 59.5 % (40.0-76.0); PLATELET 169 x1000/uL (130-400); RED CELL DISTRIBUTION WIDTH 13.7 % (11.6-14.6)
[2017-06-11] MEDS: ACETAMINOPHEN 325MG TABLET PO PRN ×3 (06:57→21:16)
[2017-06-11 07:02] LABS: HEMATOCRIT. 27.6 % (36.0-48.0)
[2017-06-11] MEDS: APIXABAN 2.5 MG TABLET PO SCH ×2 (08:24→18:33)
[2017-06-11] MEDS: ZINC SULFATE 220 MG ( 50 ) CAPSULE PO SCH (08:28)
[2017-06-11] MEDS: FAMOTIDINE 20MG TABLET PO SCH (08:28)
[2017-06-11] MEDS: AMLODIPINE 2.5MG TABLET PO SCH ×2 (08:28→20:34)
[2017-06-11] MEDS: CARVEDILOL 3.125 MG TABLET PO SCH ×2 (08:29→20:34)
[2017-06-11] MEDS ORDERED: ASPIRIN 325MG EC TABLET PO SCH (09:00)
[2017-06-11] MEDS: MIDODRINE HCL 2.5MG TABLET PO SCH ×3 (10:34→17:00)
[2017-06-11] MEDS: CEFTRIAXONE 1 G PREMIX 50 ML IV SCH (20:33)
[2017-06-11] MEDS: PHENYTOIN SODIUM EXTENDED 100MG CAPSULE PO SCH (20:33)
[2017-06-11] MEDS: ATORVASTATIN CALCIUM 40MG TABLET PO SCH (20:33)
[2017-06-12] VITALS: BP 121/95
[2017-06-12 04:00] VITALS: BP_SYST 109; BP_SYST 114; BP_SYST 150; BP_DIAS 64; BP_DIAS 85; BP_DIAS 93
[2017-06-12] MEDS: ACETAMINOPHEN 325MG TABLET PO PRN ×2 (04:23→12:34)
[2017-06-12] MEDS: BLOOD SUGAR DIAGNOSTIC STRIP TEST SCH ×3 (06:33→17:17)
[2017-06-12] MEDS: GABAPENTIN 300MG CAPSULE PO SCH ×2 (06:33→15:08)
[2017-06-12] MEDS: INSULIN LISPRO 100 UNITS/ML SUBCUT SCH ×3 (07:00→17:25)
[2017-06-12 08:00] VITALS: BP_SYST 130; BP_SYST 143; BP_SYST 177; BP_DIAS 69; BP_DIAS 75; BP_DIAS 92
[2017-06-12] MEDS ORDERED: ASPIRIN 81MG EC TABLET PO SCH (09:00)
[2017-06-12] MEDS: FAMOTIDINE 20MG TABLET PO SCH (09:49)
[2017-06-12] MEDS: APIXABAN 2.5 MG TABLET PO SCH ×2 (09:49→17:35)
[2017-06-12] MEDS: CARVEDILOL 3.125 MG TABLET PO SCH (09:50)
[2017-06-12] MEDS: ZINC SULFATE 220 MG ( 50 ) CAPSULE PO SCH (09:50)
[2017-06-12] MEDS: AMLODIPINE 2.5MG TABLET PO SCH (09:50)
[2017-06-12] MEDS: MIDODRINE HCL 2.5MG TABLET PO SCH ×3 (09:50→17:26)
[2017-06-12 12:00] VITALS: BP 125/86
[2017-06-12] MEDS ORDERED: LACTULOSE 20G/30ML UDC PO SCH (14:00)
[2017-06-12] MEDS ORDERED: LEVOFLOXACIN 250MG TABLET PO SCH (14:00)
[2017-06-12 16:00] VITALS: BP 140/90
[2017-06-12] MEDS ORDERED: DOCUSATE SODIUM 100MG CAPSULE PO SCH (17:00)
[2017-06-12] MEDS ORDERED: POLYETHYLENE GLYCOL 3350 (17GM) 1 DOSE PACK PO SCH (21:00)
== END 2017-06-12 19:00 | DRG 64 ==
LOC: ER 14:53 → 5WST 14:56 → EDBEDREQ 17:32 → EDBEDREQSVC 19:02 → ENRESERV 19:41
PROVIDERS: ADMIT Internal Medicine; ATTEND Internal Medicine
DX: I63.9 Cerebral infarction, unspecified (principal); G92 Toxic encephalopathy; N17.0 Acute kidney failure with tubular necrosis; E44.1 Mild protein-calorie malnutrition; E87.1 Hypo-osmolality and hyponatremia; G81.94 Hemiplegia, unspecified affecting left nondominant side; I13.0 Hypertensive heart and chronic kidney disease with heart failure and stage 1 through stage 4 chronic kidney disease, or unspecified chronic kidney disease; I42.9 Cardiomyopathy, unspecified; N39.0 Urinary tract infection, site not specified; I82.519 Chronic embolism and thrombosis of unspecified femoral vein; I82.539 Chronic embolism and thrombosis of unspecified popliteal vein; R47.01 Aphasia; R55 Syncope and collapse; E11.22 Type 2 diabetes mellitus with diabetic chronic kidney disease; D63.8 Anemia in other chronic diseases classified elsewhere; E78.00 Pure hypercholesterolemia, unspecified; E78.5 Hyperlipidemia, unspecified; G40.909 Epilepsy, unspecified, not intractable, without status epilepticus; H54.8 Legal blindness, as defined in USA; I25.10 Atherosclerotic heart disease of native coronary artery without angina pectoris; I48.0 Paroxysmal atrial fibrillation; I50.9 Heart failure, unspecified; I65.22 Occlusion and stenosis of left carotid artery; E11.51 Type 2 diabetes mellitus with diabetic peripheral angiopathy without gangrene; I95.1 Orthostatic hypotension; M54.12 Radiculopathy, cervical region; Z96.652 Presence of left artificial knee joint; N18.9 Chronic kidney disease, unspecified; R13.10 Dysphagia, unspecified; Z79.01 Long term (current) use of anticoagulants; Z79.4 Long term (current) use of insulin; Z86.73 Personal history of transient ischemic attack (TIA), and cerebral infarction without residual deficits; Z91.19 Patient's noncompliance with other medical treatment and regimen; Z88.0 Allergy status to penicillin; Z68.23 Body mass index [BMI] 23.0-23.9, adult; Z82.49 Family history of ischemic heart disease and other diseases of the circulatory system
CPT/HCPCS: 36415; 36600; 51702; 70450; 70551; 71010; 73502; 80048; 80053; 80061; 80156; 80165; 80184; 80185; 81001; 82270; 82375; 82550; 82553; 82607; 82746; 82805; 82962; 83036; 83540; 83550; 83605; 83735; 84484; 85025; 85027; 85610; 87040; 87086; 92523; 92610; 93005; 93306; 93880; 93970; 96365; 96366; 96367; 96368; 96375; 97116; 97162; 97166; 97530; 97535; 99291; C1893; C9113; G0482; J0696; J1165; J1815; J1953; J1956; J2270; J2405; J7030; J7050

== ENCOUNTER 2017-08-19 19:03 | Emergency (ER) | payer MEDICARE, MEDICAID ==
[~2017-08-19] VITALS: Ht 162.6 cm; Wt 66.0 kg
[~2017-08-19 19:03] MED LIST changes: +APIX2.5T PO; +ATOR40TA70 PO; +CLON0.1T PO; +ESCI10TA54 PO; +HYDR100T26 PO; +LEVA15HF4 IH; +SULF15DR26 EACHEYE
[2017-08-19 20:37] LABS: BASOPHILS % 0.8 % (0.0-2.0); EOSINOPHILS % 2.3 % (0.0-5.0); HEMATOCRIT. 29.3 % (36.0-48.0); HEMOGLOBIN. 9.6 g/dL (12.0-16.0); LYMPHOCYTES % 35.9 % (20.0-50.0); MEAN CORPUSCULAR HEMOGLOBIN 28.1 pg (28.0-32.0); MEAN CORPUSCULAR VOLUME 86.4 fL (81.0-99.0); PLATELET 174 x1000/uL (130-400); RED BLOOD CELL COUNT 3.39 mill/uL (4.2-5.4); RED CELL DISTRIBUTION WIDTH 14.7 % (11.6-14.6)
[2017-08-19 20:41] LABS: CHLORIDE 106 mEq/L (98-107)
[2017-08-19 20:43] LABS: INR 1.1
[2017-08-19 20:46] LABS: CARBON DIOXIDE 23 mEq/L (21-32)
[2017-08-19] MEDS ORDERED: HYDROCODONE/ACETAMINOPHEN 5/325MG TABLET PO ONE (23:30)
[2017-08-20] MEDS ORDERED: HYDRALAZINE 20MG/ML VIAL IV ONE (02:15)
[2017-08-20] MEDS ORDERED: HYDRALAZINE 20MG/ML VIAL ONE (02:17)
[2017-08-20 02:19] VITALS: BP 159/79
[2017-09-24] MEDS ORDERED: COR3 PO (12:28)
[2017-09-24] MEDS ORDERED: CLON0.2T PO (22:26)
[2017-09-24] MEDS ORDERED: ONDA4TAB5 PO (22:26)
[2017-09-24] MEDS ORDERED: PHEN100C12 PO (22:26)
[2017-09-24] MEDS ORDERED: SODI650T PO (22:26)
== END 2017-08-20 02:23 | disposition home or self-care (01) ==
LOC: ER 20:29
DX: G40.909 Epilepsy, unspecified, not intractable, without status epilepticus (principal); E11.22 Type 2 diabetes mellitus with diabetic chronic kidney disease; E11.65 Type 2 diabetes mellitus with hyperglycemia; E87.5 Hyperkalemia; I13.0 Hypertensive heart and chronic kidney disease with heart failure and stage 1 through stage 4 chronic kidney disease, or unspecified chronic kidney disease; N18.9 Chronic kidney disease, unspecified; D63.1 Anemia in chronic kidney disease; N17.9 Acute kidney failure, unspecified; I48.91 Unspecified atrial fibrillation; F32.9 Major depressive disorder, single episode, unspecified; Z90.49 Acquired absence of other specified parts of digestive tract; Z88.0 Allergy status to penicillin; Z86.73 Personal history of transient ischemic attack (TIA), and cerebral infarction without residual deficits; Z79.01 Long term (current) use of anticoagulants
CPT/HCPCS: 36415; 70450; 80053; 80185; 85025; 85610; 96374; 99285; J0360

== ENCOUNTER 2017-10-07 09:22 | Emergency (ER) | payer MEDICARE, MEDICAID ==
[~2017-10-07] VITALS: Ht 157.5 cm; Wt 50.0 kg
[~2017-10-07 09:22] MED LIST changes: +ALBU6.7H2; +AMA2; +AMLO10TA4; +BENZ-16; +CLON0.2T PO; +CLOP75TA16; +COR3 PO; +CYCL-108; +FURO80TA87; +KDUR20; +KEPP250; +LIP40; +ONDA4TAB5 PO; +PHEN100C12 PO; +SITA1TAB4; +SODI650T PO; +SPIR25TA; +[UNRECOGNIZED DRUG - OTHER]
[2017-10-07 10:48] LABS: EOSINOPHILS % 2.2 % (0.0-5.0); HEMATOCRIT. 32.2 % (36.0-48.0); HEMOGLOBIN. 10.6 g/dL (12.0-16.0); LYMPHOCYTES % 19.8 % (20.0-50.0); MEAN CORPUSCULAR HEMOGLOBIN 28.8 pg (28.0-32.0); MEAN PLATELET VOLUME 8.9 fl (7.4-10.4); MONOCYTES % 8.4 % (2.0-8.0); NEUTROPHILS % 68.6 % (40.0-76.0); PLATELET 221 x1000/uL (130-400); RED CELL DISTRIBUTION WIDTH 12.3 % (11.6-14.6)
[2017-10-07 10:49] LABS: PROTHROMBIN TIME 10.9 sec (9.4-11.6)
[2017-10-07 10:59] LABS: CARBON DIOXIDE 25 mEq/L (21-32); CHLORIDE 104 mEq/L (98-107); TROPONIN I < 0.02 ng/mL (0.00-0.04)
[2017-10-07 11:19] LABS: GLUCOSE URINE NEGATIVE (NEGATIVE); KETONES URINE NEGATIVE (NEGATIVE); LEUKOCYTE ESTERASE URINE NEGATIVE (NEGATIVE); NITRITE URINE NEGATIVE (NEGATIVE); OCCULT BLOOD URINE NEGATIVE (NEGATIVE); PROTEIN URINE 2+ (NEGATIVE); SPECIFIC GRAVITY URINE 1.008 (1.005-1.030); UROBILINOGEN URINE 0.2 E.U./dL (0.2-1.0)
[2017-10-07 11:21] LABS: CLARITY URINE CLEAR (CLEAR); COLOR URINE PALE YELLOW (YELLOW)
[2017-10-07 15:17] VITALS: BP 175/69
== END 2017-10-07 15:42 | disposition home or self-care (01) ==
LOC: ER 09:46
DX: E11.22 Type 2 diabetes mellitus with diabetic chronic kidney disease (principal); I13.0 Hypertensive heart and chronic kidney disease with heart failure and stage 1 through stage 4 chronic kidney disease, or unspecified chronic kidney disease; N18.9 Chronic kidney disease, unspecified; D63.1 Anemia in chronic kidney disease; G40.909 Epilepsy, unspecified, not intractable, without status epilepticus; I48.91 Unspecified atrial fibrillation; F32.9 Major depressive disorder, single episode, unspecified; Z86.73 Personal history of transient ischemic attack (TIA), and cerebral infarction without residual deficits; Z79.01 Long term (current) use of anticoagulants; Z88.0 Allergy status to penicillin; Z98.890 Other specified postprocedural states; Z90.49 Acquired absence of other specified parts of digestive tract; W06.XXXA Fall from bed, initial encounter; Y93.89 Activity, other specified; Y92.128 Other place in nursing home as the place of occurrence of the external cause
CPT/HCPCS: 36415; 70450; 71010; 80053; 81001; 83880; 84484; 85025; 85610; 93005; 99285; A4315

== ENCOUNTER 2017-10-08 07:45 | Emergency (ER) | payer MEDICARE, MEDICAID ==
[~2017-10-08] VITALS: Ht 162.6 cm; Wt 70.0 kg
[2017-10-08] MEDS ORDERED: TETANUS, DIPHTHERIA, PERTUSSIS VAC/PF 0.5ML (>7YR OLD) IM ONE (08:15)
[2017-10-08] MEDS ORDERED: LIDOCAINE HCL 1%/EPI 1:200,000 30 ML VIAL MC ONE (08:15)
[2017-10-08] MEDS ORDERED: BACITRACIN ZINC OINT UDPKT TOP ONE (08:15)
[2017-10-08 13:20] VITALS: BP 181/90
[2017-10-11] MEDS ORDERED: LEVETIRACETAM 500MG PREMIX 100 ML IV SCH (05:00)
== END 2017-10-08 13:23 | disposition home or self-care (01) ==
LOC: ER 07:52
DX: S01.111A Laceration without foreign body of right eyelid and periocular area, initial encounter (principal); R51 Headache; R41.82 Altered mental status, unspecified; R91.8 Other nonspecific abnormal finding of lung field; Y93.89 Activity, other specified; W06.XXXA Fall from bed, initial encounter; Y92.122 Bedroom in nursing home as the place of occurrence of the external cause; Z23 Encounter for immunization; I11.0 Hypertensive heart disease with heart failure; I50.9 Heart failure, unspecified; I69.898 Other sequelae of other cerebrovascular disease; G31.89 Other specified degenerative diseases of nervous system; I48.91 Unspecified atrial fibrillation; E11.9 Type 2 diabetes mellitus without complications; M48.02 Spinal stenosis, cervical region; E04.9 Nontoxic goiter, unspecified; Z88.0 Allergy status to penicillin; Z86.59 Personal history of other mental and behavioral disorders; Z90.89 Acquired absence of other organs; Z79.84 Long term (current) use of oral hypoglycemic drugs
CPT/HCPCS: 70450; 72125; 90471; 90715; 99284

== ENCOUNTER 2017-10-11 02:05 | Inpatient (IN) | payer MEDICARE, MEDICAID ==
[~2017-10-11] VITALS: Ht 165.1 cm; Wt 69.9 kg
[2017-10-11] VITALS (8 sets, daily range): BP systolic 138–187; BP diastolic 68–80
[2017-10-11] MEDS ORDERED: SODIUM CHLORIDE 0.9% 1,000 ML IV ONE (02:47)
[2017-10-11] MEDS ORDERED: MORPHINE SULFATE 4 MG/ML CPJ (NOT FOR IM USE) IV STA (02:47)
[2017-10-11] MEDS ORDERED: ONDANSETRON HCL 4MG/2ML VIAL IV STA (02:47)
[2017-10-11 03:03] LABS: BASOPHILS % 0.7 % (0.0-2.0); EOSINOPHILS % 2.2 % (0.0-5.0); HEMATOCRIT. 31.8 % (36.0-48.0); HEMOGLOBIN. 10.4 g/dL (12.0-16.0); LYMPHOCYTES % 18.3 % (20.0-50.0); MEAN CORPUSCULAR HEMOGLOBIN 28.4 pg (28.0-32.0); MEAN PLATELET VOLUME 7.7 fl (7.4-10.4); NEUTROPHILS % 69.8 % (40.0-76.0); PLATELET 204 x1000/uL (130-400); RED BLOOD CELL COUNT 3.66 mill/uL (4.2-5.4); RED CELL DISTRIBUTION WIDTH 12.6 % (11.6-14.6)
[2017-10-11] MEDS ORDERED: MORPHINE SULFATE 2 MG/ML CPJ (NOT FOR IM USE) IV STA (03:06)
[2017-10-11] MEDS ORDERED: MORPHINE SULFATE 2 MG/ML CPJ (NOT FOR IM USE) IV SCH (03:15)
[2017-10-11 03:19] LABS: CARBON DIOXIDE 25 mEq/L (21-32); CHLORIDE 102 mEq/L (98-107); TROPONIN I < 0.02 ng/mL (0.00-0.04)
[2017-10-11] MEDS ORDERED: ONDANSETRON HCL 4MG TABLET PO PRN (10:30)
[2017-10-11] MEDS ORDERED: DEXTROSE 50% WATER 50ML SYRINGE IV PRN (10:30)
[2017-10-11] MEDS: CLONIDINE 0.1MG TABLET PO PRN (10:43)
[2017-10-11] MEDS: AMLODIPINE 5MG TABLET PO SCH ×2 (10:43→21:41)
[2017-10-11] MEDS: ACETAMINOPHEN 325MG TABLET PO PRN (10:55)
[2017-10-11] MEDS: BLOOD SUGAR DIAGNOSTIC STRIP TEST SCH ×3 (11:40→21:00)
[2017-10-11] MEDS ORDERED: ASPI-1159 PO (12:11)
[2017-10-11] MEDS ORDERED: FAMO40TA70 PO (12:13)
[2017-10-11] MEDS: INSULIN LISPRO 100 UNITS/ML SUBCUT SCH ×3 (13:21→21:00)
[2017-10-11] MEDS: LEVETIRACETAM 250MG TABLET PO SCH ×2 (13:59→21:17)
[2017-10-11] MEDS: CARVEDILOL 3.125 MG TABLET PO SCH ×2 (13:59→21:16)
[2017-10-11] MEDS: CLINDAMYCIN 600MG PREMIX 50 ML IV SCH ×2 (15:16→22:45)
[2017-10-11] MEDS ORDERED: VANCOMYCIN 1250MG in DEXTROSE 5% WATER 250ML IV NR (16:00)
[2017-10-11] MEDS ORDERED: AMLODIPINE 2.5MG TABLET PO SCH (17:00)
[2017-10-11] MEDS ORDERED: SULFACETAMIDE SODIUM 10% OPHTH DROPS 15ML EACHEYE SCH (17:00)
[2017-10-11] MEDS: GABAPENTIN 300MG CAPSULE PO SCH (18:04)
[2017-10-11] MEDS: ATORVASTATIN CALCIUM 40MG TABLET PO SCH (21:16)
[2017-10-11] MEDS: CLONIDINE 0.1MG TABLET PO SCH (21:17)
[2017-10-12] VITALS (13 sets, daily range): BP systolic 92–165; BP diastolic 54–86
[2017-10-12] MEDS: CLINDAMYCIN 600MG PREMIX 50 ML IV SCH ×3 (05:45→22:23)
[2017-10-12] MEDS: ACETAMINOPHEN 325MG TABLET PO PRN (06:45)
[2017-10-12 07:01] LABS: BASOPHILS % 0.7 % (0.0-2.0); EOSINOPHILS % 2.7 % (0.0-5.0); HEMATOCRIT. 30.5 % (36.0-48.0); HEMOGLOBIN. 9.9 g/dL (12.0-16.0); MEAN CORPUSCULAR HEMOGLOBIN 28.2 pg (28.0-32.0); MEAN CORPUSCULAR VOLUME 87.2 fL (81.0-99.0); MEAN PLATELET VOLUME 7.6 fl (7.4-10.4); MONOCYTES % 7.1 % (2.0-8.0); NEUTROPHILS % 67.5 % (40.0-76.0); PLATELET 189 x1000/uL (130-400); RED BLOOD CELL COUNT 3.49 mill/uL (4.2-5.4); RED CELL DISTRIBUTION WIDTH 12.5 % (11.6-14.6)
[2017-10-12] MEDS: BLOOD SUGAR DIAGNOSTIC STRIP TEST SCH ×4 (08:00→20:34)
[2017-10-12] MEDS: INSULIN LISPRO 100 UNITS/ML SUBCUT SCH ×3 (08:00→20:34)
[2017-10-12] MEDS: CLONIDINE 0.1MG TABLET PO SCH ×2 (09:08→20:23)
[2017-10-12] MEDS: LEVETIRACETAM 250MG TABLET PO SCH ×2 (09:08→20:23)
[2017-10-12] MEDS: GABAPENTIN 300MG CAPSULE PO SCH ×3 (09:08→18:23)
[2017-10-12] MEDS: CARVEDILOL 3.125 MG TABLET PO SCH ×2 (09:08→20:23)
[2017-10-12] MEDS: AMLODIPINE 5MG TABLET PO SCH ×2 (09:09→20:23)
[2017-10-12] MEDS ORDERED: VANCOMYCIN 750 MG PREMIX 150 ML IV NR (13:00)
[2017-10-12 16:56] LABS: VITAMIN B12 SERUM > 2000 pg/mL (211-911)
[2017-10-12] MEDS: ATORVASTATIN CALCIUM 40MG TABLET PO SCH (20:24)
[2017-10-13] VITALS (12 sets, daily range): BP systolic 107–148; BP diastolic 58–70
[2017-10-13] MEDS: CLINDAMYCIN 600MG PREMIX 50 ML IV SCH ×3 (06:16→23:02)
[2017-10-13 07:50] LABS: BASOPHILS % 0.7 % (0.0-2.0); EOSINOPHILS % 2.8 % (0.0-5.0); HEMATOCRIT. 31.4 % (36.0-48.0); HEMOGLOBIN. 10.1 g/dL (12.0-16.0); LYMPHOCYTES % 21.6 % (20.0-50.0); MEAN CORPUSCULAR HEMOGLOBIN 28.2 pg (28.0-32.0); MEAN CORPUSCULAR VOLUME 87.8 fL (81.0-99.0); MEAN PLATELET VOLUME 8.4 fl (7.4-10.4); MONOCYTES % 9.7 % (2.0-8.0); NEUTROPHILS % 65.2 % (40.0-76.0); PLATELET 156 x1000/uL (130-400); RED BLOOD CELL COUNT 3.58 mill/uL (4.2-5.4); RED CELL DISTRIBUTION WIDTH 12.5 % (11.6-14.6)
[2017-10-13] MEDS: INSULIN LISPRO 100 UNITS/ML SUBCUT SCH ×4 (08:00→21:26)
[2017-10-13] MEDS: BLOOD SUGAR DIAGNOSTIC STRIP TEST SCH ×4 (08:32→21:25)
[2017-10-13] MEDS: LEVETIRACETAM 250MG TABLET PO SCH ×2 (08:33→21:18)
[2017-10-13] MEDS: AMLODIPINE 5MG TABLET PO SCH ×2 (08:33→21:18)
[2017-10-13] MEDS: CARVEDILOL 3.125 MG TABLET PO SCH ×2 (08:33→21:18)
[2017-10-13] MEDS: GABAPENTIN 300MG CAPSULE PO SCH ×3 (08:33→17:14)
[2017-10-13] MEDS: ACETAMINOPHEN 325MG TABLET PO PRN (08:34)
[2017-10-13] MEDS: CLONIDINE 0.1MG TABLET PO SCH ×2 (08:34→21:18)
[2017-10-13] MEDS: TRAMADOL 50MG TABLET PO PRN ×2 (14:42→23:39)
[2017-10-13] MEDS: VANCOMYCIN 750 MG PREMIX 150 ML IV SCH (16:33)
[2017-10-13] MEDS: HYDROCODONE/ACETAMINOPHEN 5/325MG TABLET PO PRN (17:15)
[2017-10-13] MEDS: ATORVASTATIN CALCIUM 40MG TABLET PO SCH (21:18)
[2017-10-14] VITALS (12 sets, daily range): BP systolic 110–153; BP diastolic 56–85
[2017-10-14] MEDS: HYDROCODONE/ACETAMINOPHEN 5/325MG TABLET PO PRN (05:41)
[2017-10-14] MEDS: CLINDAMYCIN 600MG PREMIX 50 ML IV SCH ×3 (06:02→22:49)
[2017-10-14] MEDS: BLOOD SUGAR DIAGNOSTIC STRIP TEST SCH ×4 (07:30→20:53)
[2017-10-14 07:38] LABS: BASOPHILS % 0.8 % (0.0-2.0); EOSINOPHILS % 2.5 % (0.0-5.0); HEMATOCRIT. 28.6 % (36.0-48.0); HEMOGLOBIN. 9.5 g/dL (12.0-16.0); LYMPHOCYTES % 22.5 % (20.0-50.0); MEAN CORPUSCULAR HEMOGLOBIN 28.8 pg (28.0-32.0); MEAN CORPUSCULAR VOLUME 86.7 fL (81.0-99.0); MEAN PLATELET VOLUME 8.3 fl (7.4-10.4); MONOCYTES % 8.7 % (2.0-8.0); NEUTROPHILS % 65.5 % (40.0-76.0); PLATELET 146 x1000/uL (130-400); RED BLOOD CELL COUNT 3.29 mill/uL (4.2-5.4); RED CELL DISTRIBUTION WIDTH 12.2 % (11.6-14.6)
[2017-10-14] MEDS: INSULIN LISPRO 100 UNITS/ML SUBCUT SCH ×4 (08:00→20:53)
[2017-10-14] MEDS: GABAPENTIN 300MG CAPSULE PO SCH ×3 (09:08→18:04)
[2017-10-14] MEDS: CLONIDINE 0.1MG TABLET PO SCH ×2 (09:09→20:52)
[2017-10-14] MEDS: LEVETIRACETAM 250MG TABLET PO SCH ×2 (09:09→20:52)
[2017-10-14] MEDS: CARVEDILOL 3.125 MG TABLET PO SCH ×2 (09:09→20:52)
[2017-10-14] MEDS: AMLODIPINE 5MG TABLET PO SCH ×2 (09:13→20:52)
[2017-10-14] MEDS: TRAMADOL 50MG TABLET PO PRN ×2 (12:13→20:52)
[2017-10-14] MEDS: CLONIDINE 0.1MG TABLET PO PRN (14:15)
[2017-10-14] MEDS: VANCOMYCIN 750 MG PREMIX 150 ML IV SCH (16:18)
[2017-10-14] MEDS: ATORVASTATIN CALCIUM 40MG TABLET PO SCH (20:52)
[2017-10-15] VITALS (10 sets, daily range): BP systolic 112–154; BP diastolic 48–78
[2017-10-15] MEDS: HYDROCODONE/ACETAMINOPHEN 5/325MG TABLET PO PRN (01:29)
[2017-10-15] MEDS: CLINDAMYCIN 600MG PREMIX 50 ML IV SCH ×2 (06:28→16:09)
[2017-10-15 07:15] LABS: BASOPHILS % 0.6 % (0.0-2.0); EOSINOPHILS % 2.8 % (0.0-5.0); HEMATOCRIT. 28.3 % (36.0-48.0); HEMOGLOBIN. 9.2 g/dL (12.0-16.0); MEAN CORPUSCULAR HEMOGLOBIN 28.2 pg (28.0-32.0); MEAN CORPUSCULAR VOLUME 86.7 fL (81.0-99.0); MEAN PLATELET VOLUME 8.1 fl (7.4-10.4); MONOCYTES % 8.4 % (2.0-8.0); NEUTROPHILS % 62.2 % (40.0-76.0); PLATELET 135 x1000/uL (130-400); RED BLOOD CELL COUNT 3.26 mill/uL (4.2-5.4); RED CELL DISTRIBUTION WIDTH 12.3 % (11.6-14.6)
[2017-10-15] MEDS: BLOOD SUGAR DIAGNOSTIC STRIP TEST SCH ×3 (07:30→17:43)
[2017-10-15] MEDS: INSULIN LISPRO 100 UNITS/ML SUBCUT SCH ×3 (08:00→18:12)
[2017-10-15] MEDS: GABAPENTIN 300MG CAPSULE PO SCH ×3 (09:29→18:11)
[2017-10-15] MEDS: LEVETIRACETAM 250MG TABLET PO SCH (09:29)
[2017-10-15] MEDS: AMLODIPINE 5MG TABLET PO SCH (09:30)
[2017-10-15] MEDS: CARVEDILOL 3.125 MG TABLET PO SCH (09:31)
[2017-10-15] MEDS: TRAMADOL 50MG TABLET PO PRN (09:31)
[2017-10-15] MEDS: CLONIDINE 0.1MG TABLET PO SCH (09:32)
[2017-10-15] MEDS: VANCOMYCIN 750 MG PREMIX 150 ML IV SCH (16:09)
[2017-10-15] MEDS ORDERED: CLONIDINE 0.2MG TABLET PO SCH (21:00)
== END 2017-10-15 19:34 | DRG 82 ==
LOC: ER 02:05 → 5EST 05:56 → EDBEDREQTM 06:01 → EDBEDREQ 06:01 → EDBEDREQSVC 06:01 → ENRESERV 07:21
PROVIDERS: ADMIT Hospitalist; ATTEND Hospitalist
DX: S06.5X9A Traumatic subdural hemorrhage with loss of consciousness of unspecified duration, initial encounter (principal); J18.9 Pneumonia, unspecified organism; N17.9 Acute kidney failure, unspecified; I13.0 Hypertensive heart and chronic kidney disease with heart failure and stage 1 through stage 4 chronic kidney disease, or unspecified chronic kidney disease; E11.22 Type 2 diabetes mellitus with diabetic chronic kidney disease; I48.91 Unspecified atrial fibrillation; I50.9 Heart failure, unspecified; E87.5 Hyperkalemia; F03.90 Unspecified dementia, unspecified severity, without behavioral disturbance, psychotic disturbance, mood disturbance, and anxiety; S00.10XA Contusion of unspecified eyelid and periocular area, initial encounter; Z86.718 Personal history of other venous thrombosis and embolism; N18.3 Chronic kidney disease, stage 3 (moderate); T42.0X5A Adverse effect of hydantoin derivatives, initial encounter; Y93.01 Activity, walking, marching and hiking; W01.0XXA Fall on same level from slipping, tripping and stumbling without subsequent striking against object, initial encounter; R26.89 Other abnormalities of gait and mobility; R29.6 Repeated falls; G40.909 Epilepsy, unspecified, not intractable, without status epilepticus; H54.7 Unspecified visual loss; E78.00 Pure hypercholesterolemia, unspecified; E78.5 Hyperlipidemia, unspecified; I25.10 Atherosclerotic heart disease of native coronary artery without angina pectoris; I25.2 Old myocardial infarction; Y99.8 Other external cause status; Z86.73 Personal history of transient ischemic attack (TIA), and cerebral infarction without residual deficits; Z88.0 Allergy status to penicillin; Z79.51 Long term (current) use of inhaled steroids; Z79.899 Other long term (current) drug therapy; Y92.129 Unspecified place in nursing home as the place of occurrence of the external cause
CPT/HCPCS: 36415; 70450; 70486; 71010; 72125; 80048; 80053; 80185; 80202; 82607; 82962; 84443; 84484; 85025; 93005; 93970; 96361; 96374; 96375; 97162; 97166; 99285; A6261; J1815; J2270; J2405; J3370; J3490; J7030; J7040; J7050; J7060

== ENCOUNTER 2018-07-07 14:13 | Emergency (ER) | payer MEDICARE, OTHER ==
[~2018-07-07] VITALS: Ht 177.8 cm; Wt 61.0 kg
[~2018-07-07 14:13] MED LIST changes: +ACET-2708 PO; -ALBU6.7H2; +ALBU6.7H9; -AMA2; -AMLO10TA4; +AMLO10TA80 PO; -AMLO2.5T45 PO; -APIX2.5T PO; +ASPI-986 PO; -BENZ-16; -CLON0.1T PO; -CLON0.2T PO; -CLOP75TA16; +CLOP75TA33 PO; -COR3 PO; -CYCL-108; -ESCI10TA54 PO; -FURO80TA87; +HYDR-4135 PO; -HYDR100T26 PO; +INSLIS SUBCUT; -KDUR20; -KEPP250; -LIP40; -ONDA4TAB5 PO; -PHEN100C12 PO; -SITA1TAB4; -SODI650T PO; -SPIR25TA; -SULF15DR26 EACHEYE; -[UNRECOGNIZED DRUG - OTHER]
[2018-07-07 15:03] LABS: BASOPHILS % 0.7 % (0.0-2.0); EOSINOPHILS % 1.9 % (0.0-5.0); HEMATOCRIT. 34.8 % (36.0-48.0); HEMOGLOBIN. 11.2 g/dL (12.0-16.0); LYMPHOCYTES % 32.8 % (20.0-50.0); MEAN CORPUSCULAR HEMOGLOBIN 27.2 pg (28.0-32.0); MEAN CORPUSCULAR VOLUME 84.5 fL (81.0-99.0); MEAN PLATELET VOLUME 8.4 fl (7.4-10.4); MONOCYTES % 6.2 % (2.0-8.0); NEUTROPHILS % 58.4 % (40.0-76.0); PLATELET 224 x1000/uL (130-400); RED BLOOD CELL COUNT 4.12 mill/uL (4.2-5.4); RED CELL DISTRIBUTION WIDTH 14.2 % (11.6-14.6)
[2018-07-07 15:07] LABS: CHLORIDE 112 mEq/L (98-107)
[2018-07-07] MEDS ORDERED: ACETAMINOPHEN 325MG TABLET PO ONE (16:00)
[2018-07-07 18:10] VITALS: BP 124/80
== END 2018-07-07 18:59 | disposition home or self-care (01) ==
LOC: ER 15:17
DX: M79.1 Myalgia (principal); I11.0 Hypertensive heart disease with heart failure; I50.9 Heart failure, unspecified; E11.9 Type 2 diabetes mellitus without complications; I25.2 Old myocardial infarction; H54.7 Unspecified visual loss; G40.909 Epilepsy, unspecified, not intractable, without status epilepticus; I69.354 Hemiplegia and hemiparesis following cerebral infarction affecting left non-dominant side; J44.9 Chronic obstructive pulmonary disease, unspecified; Z90.49 Acquired absence of other specified parts of digestive tract; Z90.710 Acquired absence of both cervix and uterus; Z98.51 Tubal ligation status; Z79.82 Long term (current) use of aspirin; Z88.0 Allergy status to penicillin; Z99.81 Dependence on supplemental oxygen; Z79.01 Long term (current) use of anticoagulants; W01.198A Fall on same level from slipping, tripping and stumbling with subsequent striking against other object, initial encounter; Y93.89 Activity, other specified; Y92.018 Other place in single-family (private) house as the place of occurrence of the external cause; Z79.4 Long term (current) use of insulin
CPT/HCPCS: 36415; 71045; 73502; 73562; 73610; 80053; 83880; 84484; 85025; 93005; 99285

== ENCOUNTER 2018-10-14 12:41 | Inpatient (IN) | payer MEDICARE, MEDICAID ==
[~2018-10-14] VITALS: Ht 172.7 cm; Wt 71.7 kg
[2018-10-14] MEDS ORDERED: ACETAMINOPHEN WITH CODEINE 300/30MG TABLET PO STA (14:19)
[2018-10-14] MEDS ORDERED: ASPIRIN 81MG TABLET PO ONE (14:30)
[2018-10-14 15:15] LABS: BASOPHILS % 0.8 % (0.0-2.0); EOSINOPHILS % 0.9 % (0.0-5.0); HEMATOCRIT. 32.5 % (36.0-48.0); HEMOGLOBIN. 10.7 g/dL (12.0-16.0); LYMPHOCYTES % 23.8 % (20.0-50.0); MEAN CORPUSCULAR HEMOGLOBIN 27.7 pg (28.0-32.0); MEAN CORPUSCULAR VOLUME 84.4 fL (81.0-99.0); MEAN PLATELET VOLUME 8.6 fl (7.4-10.4); MONOCYTES % 7.1 % (2.0-8.0); NEUTROPHILS % 67.4 % (40.0-76.0); PLATELET 252 x1000/uL (130-400); RED BLOOD CELL COUNT 3.86 mill/uL (4.2-5.4); RED CELL DISTRIBUTION WIDTH 13.9 % (11.6-14.6)
[2018-10-14 15:22] LABS: CHLORIDE 108 mEq/L (98-107)
[2018-10-14] MEDS ORDERED: NITROGLYCERIN 0.4MG TABLET SL SL ONE (15:45)
[2018-10-14] MEDS ORDERED: HYDROCODONE/ACETAMINOPHEN 5/325MG TABLET PO ONE (15:45)
[2018-10-14] MEDS ORDERED: IPRATROPIUM/ALBUTEROL 0.5-3(2.5)MG/3ML NEB INH PRN (17:45)
[2018-10-14] MEDS ORDERED: DOCUSATE SODIUM 100MG CAPSULE PO PRN (17:45)
[2018-10-14] MEDS ORDERED: ACETAMINOPHEN 325MG TABLET PO PRN (17:45)
[2018-10-14] MEDS ORDERED: ONDANSETRON HCL 4MG/2ML INJ IV PRN (17:45)
[2018-10-14 21:17] LABS: PHOSPHORUS 4.4 mg/dL (2.5-4.9)
[2018-10-14 21:40] VITALS: BP 139/52
[2018-10-14 22:32] VITALS: BP 139/52
[2018-10-14] MEDS ORDERED: DEXTROSE 50% WATER 50ML SYRINGE IV PRN (23:00)
[2018-10-14] MEDS: SODIUM CHLORIDE 0.9% 1,000 ML IV SCH (23:15)
[2018-10-14] MEDS: HYDROCODONE/ACETAMINOPHEN 5/325MG TABLET PO PRN (23:15)
[2018-10-14] MEDS: HEPARIN 5000 UNITS/ML VIAL SUBCUT SCH (23:17)
[2018-10-15] VITALS: BP 161/68
[2018-10-15 00:27] LABS: CREATINE KINASE 61 IU/L (26-192)
[2018-10-15 00:29] LABS: CREATINE KINASE MB FRACTION 1.3 ng/mL (0.5-3.6)
[2018-10-15 04:00] VITALS: BP 163/63
[2018-10-15] MEDS: HYDROCODONE/ACETAMINOPHEN 5/325MG TABLET PO PRN ×2 (04:05→15:56)
[2018-10-15] MEDS: CLONIDINE 0.1MG TABLET PO PRN ×2 (04:06→20:41)
[2018-10-15] MEDS: BLOOD SUGAR DIAGNOSTIC STRIP TEST SCH ×4 (05:55→20:55)
[2018-10-15 07:06] LABS: BASOPHILS % 1.1 % (0.0-2.0); HEMATOCRIT. 28.4 % (36.0-48.0); HEMOGLOBIN. 9.3 g/dL (12.0-16.0); LYMPHOCYTES % 33.6 % (20.0-50.0); MEAN CORPUSCULAR HEMOGLOBIN 27.7 pg (28.0-32.0); MEAN CORPUSCULAR VOLUME 84.3 fL (81.0-99.0); MEAN PLATELET VOLUME 8.5 fl (7.4-10.4); MONOCYTES % 7.7 % (2.0-8.0); NEUTROPHILS % 55.6 % (40.0-76.0); PLATELET 210 x1000/uL (130-400); RED BLOOD CELL COUNT 3.37 mill/uL (4.2-5.4); RED CELL DISTRIBUTION WIDTH 13.8 % (11.6-14.6)
[2018-10-15 08:00] VITALS: BP 160/61
[2018-10-15] MEDS: INSULIN LISPRO 100 UNITS/ML SUBCUT SCH ×4 (08:10→20:54)
[2018-10-15] MEDS ORDERED: ASPIRIN 81MG EC TABLET PO SCH (09:00)
[2018-10-15] MEDS: HEPARIN 5000 UNITS/ML VIAL SUBCUT SCH ×2 (09:15→20:42)
[2018-10-15 12:00] VITALS: BP 152/60
[2018-10-15] MEDS ORDERED: REGADENOSON 0.4 MG/5 ML IV ONE (14:00)
[2018-10-15 15:09] LABS: LDL CHOLESTEROL 55 mg/dL (5-100)
[2018-10-15 15:10] LABS: CREATINE KINASE 55 IU/L (26-192); HDL CHOLESTEROL 43 mg/dL (40-59)
[2018-10-15 15:12] LABS: CREATINE KINASE MB FRACTION 1.2 ng/mL (0.5-3.6)
[2018-10-15 20:00] VITALS: BP 176/72
[2018-10-15] MEDS ORDERED: AMLODIPINE 10MG TABLET PO NR (20:00)
[2018-10-15] MEDS ORDERED: ATORVASTATIN CALCIUM 40MG TABLET PO SCH (21:00)
[2018-10-15] MEDS: GABAPENTIN 300MG CAPSULE PO SCH (21:08)
[2018-10-15] MEDS: SODIUM CHLORIDE 0.9% 1,000 ML IV SCH (22:20)
[2018-10-16] VITALS: BP 151/64
[2018-10-16] MEDS: HYDROCODONE/ACETAMINOPHEN 5/325MG TABLET PO PRN ×4 (01:16→18:00)
[2018-10-16 04:00] VITALS: BP 156/57
[2018-10-16] MEDS: GABAPENTIN 300MG CAPSULE PO SCH ×2 (05:45→12:49)
[2018-10-16] MEDS: BLOOD SUGAR DIAGNOSTIC STRIP TEST SCH ×3 (07:18→17:35)
[2018-10-16] MEDS: INSULIN LISPRO 100 UNITS/ML SUBCUT SCH ×3 (07:26→18:02)
[2018-10-16 07:31] LABS: BASOPHILS % 0.9 % (0.0-2.0); EOSINOPHILS % 1.7 % (0.0-5.0); HEMATOCRIT. 28.5 % (36.0-48.0); HEMOGLOBIN. 9.4 g/dL (12.0-16.0); LYMPHOCYTES % 37.5 % (20.0-50.0); MEAN CORPUSCULAR HEMOGLOBIN 27.8 pg (28.0-32.0); MEAN CORPUSCULAR VOLUME 84.2 fL (81.0-99.0); MEAN PLATELET VOLUME 8.6 fl (7.4-10.4); MONOCYTES % 7.6 % (2.0-8.0); NEUTROPHILS % 52.3 % (40.0-76.0); PLATELET 220 x1000/uL (130-400); RED BLOOD CELL COUNT 3.38 mill/uL (4.2-5.4); RED CELL DISTRIBUTION WIDTH 13.6 % (11.6-14.6)
[2018-10-16] MEDS ORDERED: LEVOTHYROXINE SODIUM 75MCG TABLET PO SCH (07:40)
[2018-10-16 08:00] VITALS: BP 170/62
[2018-10-16] MEDS: DOCUSATE SODIUM 100MG CAPSULE PO SCH ×2 (08:50→18:01)
[2018-10-16 08:52] LABS: CHLORIDE 112 mEq/L (98-107)
[2018-10-16] MEDS ORDERED: ASPIRIN 325MG EC TABLET PO SCH (09:00)
[2018-10-16] MEDS ORDERED: CLOPIDOGREL 75MG TABLET PO SCH (09:00)
[2018-10-16 09:02] LABS: PHOSPHORUS 4.5 mg/dL (2.5-4.9); TOTAL IRON BINDING CAPACITY 210 ug/dL (250-450)
[2018-10-16] MEDS: HEPARIN 5000 UNITS/ML VIAL SUBCUT SCH (09:16)
[2018-10-16] MEDS ORDERED: REGADENOSON 0.4 MG/5 ML IV ONE (10:39)
[2018-10-16 12:00] VITALS: BP 176/79
[2018-10-16] MEDS: SODIUM CHLORIDE 0.9% 1,000 ML IV SCH (12:49)
[2018-10-16] MEDS: CLONIDINE 0.1MG TABLET PO PRN (12:49)
[2018-10-16] MEDS ORDERED: DOCU-138 PO (15:30)
[2018-10-16] MEDS ORDERED: GABA-531 PO (15:30)
[2018-10-16 15:39] VITALS: BP 115/60
[2018-10-16 17:03] VITALS: BP 115/60
[2018-10-23] MEDS ORDERED: HYDR100T26 PO (13:30)
[2018-10-23] MEDS ORDERED: LEVO25TA7 PO (14:02)
[2018-10-23] MEDS ORDERED: INSU100I28 SQ (14:02)
== END 2018-10-16 23:00 | disposition home or self-care (01) | DRG 683 ==
LOC: ER 14:06 → EDBEDREQ 17:02 → EDBEDREQTM 17:02 → ENRESERV 20:20 → 7WST 22:02
PROVIDERS: ADMIT Internal Medicine; ATTEND Internal Medicine
DX: N17.9 Acute kidney failure, unspecified (principal); I13.0 Hypertensive heart and chronic kidney disease with heart failure and stage 1 through stage 4 chronic kidney disease, or unspecified chronic kidney disease; I82.503 Chronic embolism and thrombosis of unspecified deep veins of lower extremity, bilateral; M94.0 Chondrocostal junction syndrome [Tietze]; N18.4 Chronic kidney disease, stage 4 (severe); I48.91 Unspecified atrial fibrillation; E04.9 Nontoxic goiter, unspecified; E11.22 Type 2 diabetes mellitus with diabetic chronic kidney disease; D63.8 Anemia in other chronic diseases classified elsewhere; E11.319 Type 2 diabetes mellitus with unspecified diabetic retinopathy without macular edema; E78.5 Hyperlipidemia, unspecified; I50.9 Heart failure, unspecified; G40.909 Epilepsy, unspecified, not intractable, without status epilepticus; H54.7 Unspecified visual loss; I25.10 Atherosclerotic heart disease of native coronary artery without angina pectoris; J44.9 Chronic obstructive pulmonary disease, unspecified; I25.2 Old myocardial infarction; Z86.73 Personal history of transient ischemic attack (TIA), and cerebral infarction without residual deficits; Z90.49 Acquired absence of other specified parts of digestive tract; Z90.710 Acquired absence of both cervix and uterus; Z95.5 Presence of coronary angioplasty implant and graft; Z88.0 Allergy status to penicillin; Z79.4 Long term (current) use of insulin; Z79.82 Long term (current) use of aspirin; Z79.899 Other long term (current) drug therapy; Z98.51 Tubal ligation status; Z98.891 History of uterine scar from previous surgery
CPT/HCPCS: 36415; 71045; 78452; 80048; 80061; 82550; 82553; 82728; 82962; 83540; 83550; 83735; 83880; 84100; 84443; 84484; 93005; 93017; 93306; 93970; 99285; A9500; J1644; J1815; J2785

== ENCOUNTER 2019-03-17 12:22 | Inpatient (IN) | payer MEDICARE, MEDICAID ==
[~2019-03-17] VITALS: Ht 172.7 cm; Wt 78.0 kg
[~2019-03-17 12:22] MED LIST changes: -ALBU6.7H9; -ASPI-986 PO; +DOCU-138 PO; -HYDR-4135 PO; +HYDR100T26 PO; +INSU100I28 SQ; -LEVA15HF4 IH; +LEVO25TA7 PO
[2019-03-17] MEDS ORDERED: ACETAMINOPHEN 325MG TABLET PO ONE (13:30)
[2019-03-17 13:49] LABS: BASOPHILS % 0.5 % (0.0-2.0); EOSINOPHILS % 0.7 % (0.0-5.0); HEMATOCRIT. 34.3 % (36.0-48.0); LYMPHOCYTES % 10.8 % (20.0-50.0); MEAN CORPUSCULAR HEMOGLOBIN 27.3 pg (28.0-32.0); MEAN PLATELET VOLUME 8.2 fl (7.4-10.4); MONOCYTES % 5.4 % (2.0-8.0); NEUTROPHILS % 82.6 % (40.0-76.0); PLATELET 209 x1000/uL (130-400); RED BLOOD CELL COUNT 4.03 mill/uL (4.2-5.4)
[2019-03-17 13:56] LABS: CHLORIDE 110 mEq/L (98-107)
[2019-03-17] MEDS ORDERED: ACETAMINOPHEN 325MG TABLET PO PRN (14:00)
[2019-03-17] MEDS ORDERED: MAGNESIUM/ALUMINUM HYDROXIDE/SIMETHICONE 30ML UDC PO PRN (14:00)
[2019-03-17] MEDS ORDERED: ONDANSETRON HCL 4MG/2ML INJ IV PRN (14:00)
[2019-03-17] MEDS ORDERED: LORAZEPAM 2MG/ML CPJ IV PRN (14:00)
[2019-03-17] MEDS ORDERED: CLONIDINE 0.1MG TABLET PO PRN (14:00)
[2019-03-17] MEDS ORDERED: GUAIFENESIN 200MG/10ML SUGAR FREE UDC PO PRN (14:00)
[2019-03-17] MEDS ORDERED: DOCUSATE SODIUM 100MG CAPSULE PO PRN (14:00)
[2019-03-17] MEDS ORDERED: DEXTROSE 50% WATER 50ML SYRINGE IV PRN (17:30)
[2019-03-17] MEDS: HYDROCODONE/ACETAMINOPHEN 5/325MG TABLET PO PRN ×2 (18:21→22:38)
[2019-03-17] MEDS: SODIUM CHLORIDE 0.9% 1,000 ML IV SCH (18:22)
[2019-03-17 18:30] VITALS: BP 176/71
[2019-03-17 20:00] VITALS: BP 135/69
[2019-03-17] MEDS: BLOOD SUGAR DIAGNOSTIC STRIP TEST SCH (21:01)
[2019-03-17] MEDS: INSULIN LISPRO 100 UNITS/ML SUBCUT SCH (21:04)
[2019-03-17] MEDS: LEVETIRACETAM 500MG TABLET PO SCH (21:04)
[2019-03-18] VITALS: BP 140/58
[2019-03-18 04:00] VITALS: BP 153/52
[2019-03-18] MEDS: HYDROCODONE/ACETAMINOPHEN 5/325MG TABLET PO PRN ×3 (06:09→21:20)
[2019-03-18 06:23] LABS: BASOPHILS % 0.9 % (0.0-2.0); EOSINOPHILS % 1.6 % (0.0-5.0); HEMATOCRIT. 27.7 % (36.0-48.0); LYMPHOCYTES % 27.9 % (20.0-50.0); MEAN CORPUSCULAR HEMOGLOBIN 27.5 pg (28.0-32.0); MEAN CORPUSCULAR VOLUME 85.1 fL (81.0-99.0); MEAN PLATELET VOLUME 8.9 fl (7.4-10.4); MONOCYTES % 8.6 % (2.0-8.0); PLATELET 174 x1000/uL (130-400); RED BLOOD CELL COUNT 3.26 mill/uL (4.2-5.4); RED CELL DISTRIBUTION WIDTH 13.5 % (11.6-14.6)
[2019-03-18] MEDS: BLOOD SUGAR DIAGNOSTIC STRIP TEST SCH ×4 (06:23→20:15)
[2019-03-18] MEDS: INSULIN LISPRO 100 UNITS/ML SUBCUT SCH ×4 (06:24→20:15)
[2019-03-18] MEDS ORDERED: INSU100I28 SQ (07:16)
[2019-03-18 07:30] LABS: CHLORIDE 114 mEq/L (98-107)
[2019-03-18 08:00] VITALS: BP 144/60
[2019-03-18] MEDS: LEVETIRACETAM 500MG TABLET PO SCH ×2 (09:06→20:20)
[2019-03-18] MEDS: SODIUM CHLORIDE 0.9% 1,000 ML IV SCH ×2 (09:06→16:27)
[2019-03-18] MEDS: ASPIRIN 81MG EC TABLET PO SCH (09:06)
[2019-03-18] MEDS: AMLODIPINE 10MG TABLET PO SCH (09:06)
[2019-03-18] MEDS: CLOPIDOGREL 75MG TABLET PO SCH (09:06)
[2019-03-18 12:00] VITALS: BP 135/48
[2019-03-18 16:00] VITALS: BP 111/67
[2019-03-18 20:00] VITALS: BP 149/68
[2019-03-19] VITALS: BP 142/53
[2019-03-19 04:00] VITALS: BP 163/62
[2019-03-19 06:29] LABS: BASOPHILS % 0.7 % (0.0-2.0); EOSINOPHILS % 2.3 % (0.0-5.0); HEMATOCRIT. 29.9 % (36.0-48.0); HEMOGLOBIN. 9.7 g/dL (12.0-16.0); MEAN CORPUSCULAR HEMOGLOBIN 27.5 pg (28.0-32.0); MEAN CORPUSCULAR VOLUME 84.6 fL (81.0-99.0); MEAN PLATELET VOLUME 8.5 fl (7.4-10.4); MONOCYTES % 6.6 % (2.0-8.0); NEUTROPHILS % 58.4 % (40.0-76.0); PLATELET 190 x1000/uL (130-400); RED BLOOD CELL COUNT 3.53 mill/uL (4.2-5.4); RED CELL DISTRIBUTION WIDTH 13.6 % (11.6-14.6)
[2019-03-19] MEDS: INSULIN LISPRO 100 UNITS/ML SUBCUT SCH ×2 (07:15→11:59)
[2019-03-19] MEDS: BLOOD SUGAR DIAGNOSTIC STRIP TEST SCH ×3 (07:18→16:45)
[2019-03-19 07:32] LABS: CHLORIDE 115 mEq/L (98-107)
[2019-03-19 08:00] VITALS: BP 153/53
[2019-03-19] MEDS: CLOPIDOGREL 75MG TABLET PO SCH (08:41)
[2019-03-19] MEDS: AMLODIPINE 10MG TABLET PO SCH (08:41)
[2019-03-19] MEDS: ASPIRIN 81MG EC TABLET PO SCH (08:41)
[2019-03-19] MEDS: LEVETIRACETAM 500MG TABLET PO SCH (08:41)
[2019-03-19] MEDS: SODIUM CHLORIDE 0.9% 1,000 ML IV SCH (08:41)
[2019-03-19] MEDS ORDERED: ENOXAPARIN 30MG/0.3ML SYR SUBCUT SCH (09:00)
[2019-03-19 12:00] VITALS: BP 146/51
[2019-03-19 17:20] VITALS: BP 163/66
[2019-03-19 17:43] VITALS: BP 163/66
[2019-03-19] MEDS: HYDROCODONE/ACETAMINOPHEN 5/325MG TABLET PO PRN (17:43)
== END 2019-03-19 18:55 | disposition home health service (06) | DRG 101 ==
LOC: ER 12:22 → SUPCPDRO 13:39 → 5WST 15:54 → ENRESERV 16:09
PROVIDERS: ADMIT Hospitalist; ATTEND Hospitalist
PROC: 4A00X4Z Measurement of Central Nervous Electrical Activity, External Approach (ICD-10-PCS; principal; 2019-03-19)
DX: G40.409 Other generalized epilepsy and epileptic syndromes, not intractable, without status epilepticus (principal); I13.0 Hypertensive heart and chronic kidney disease with heart failure and stage 1 through stage 4 chronic kidney disease, or unspecified chronic kidney disease; N17.9 Acute kidney failure, unspecified; I82.503 Chronic embolism and thrombosis of unspecified deep veins of lower extremity, bilateral; E11.22 Type 2 diabetes mellitus with diabetic chronic kidney disease; N18.9 Chronic kidney disease, unspecified; I50.9 Heart failure, unspecified; J44.9 Chronic obstructive pulmonary disease, unspecified; E11.40 Type 2 diabetes mellitus with diabetic neuropathy, unspecified; H54.8 Legal blindness, as defined in USA; E03.9 Hypothyroidism, unspecified; E11.51 Type 2 diabetes mellitus with diabetic peripheral angiopathy without gangrene; D64.9 Anemia, unspecified; E78.00 Pure hypercholesterolemia, unspecified; R51 Headache; G31.9 Degenerative disease of nervous system, unspecified; I25.10 Atherosclerotic heart disease of native coronary artery without angina pectoris; E78.5 Hyperlipidemia, unspecified; Z95.828 Presence of other vascular implants and grafts; Z95.5 Presence of coronary angioplasty implant and graft; Z90.710 Acquired absence of both cervix and uterus; Z90.49 Acquired absence of other specified parts of digestive tract; Z98.51 Tubal ligation status; Z86.73 Personal history of transient ischemic attack (TIA), and cerebral infarction without residual deficits; I25.2 Old myocardial infarction; Z79.02 Long term (current) use of antithrombotics/antiplatelets; Z79.82 Long term (current) use of aspirin; Z79.4 Long term (current) use of insulin; Z88.0 Allergy status to penicillin; Z79.899 Other long term (current) drug therapy
CPT/HCPCS: 36415; 70551; 80048; 82962; 83735; 84484; 93005; 93306; 93880; 93970; 97162; 99285; C1893; J1650; J1815

== ENCOUNTER 2019-07-30 09:59 | Inpatient (IN) | payer MEDICARE, MEDICAID ==
[~2019-07-30] VITALS: Ht 172.7 cm; Wt 56.2 kg
[2019-07-30] MEDS ORDERED: ONDANSETRON HCL 4MG/2ML INJ IV STA ×2 (10:35→13:20)
[2019-07-30] MEDS ORDERED: SODIUM CHLORIDE 0.9% 1,000 ML IV ONE (10:35)
[2019-07-30] MEDS ORDERED: ASPIRIN 81MG TABLET PO ONE (10:45)
[2019-07-30 11:53] LABS: BASOPHILS % 0.8 % (0.0-2.0); EOSINOPHILS % 1.2 % (0.0-5.0); HEMOGLOBIN. 10.7 g/dL (12.0-16.0); LYMPHOCYTES % 18.7 % (20.0-50.0); MEAN CORPUSCULAR HEMOGLOBIN 27.2 pg (28.0-32.0); MEAN CORPUSCULAR VOLUME 83.8 fL (81.0-99.0); MEAN PLATELET VOLUME 9.4 fl (7.4-10.4); NEUTROPHILS % 71.3 % (40.0-76.0); PLATELET 200 x1000/uL (130-400); RED BLOOD CELL COUNT 3.94 mill/uL (4.2-5.4); RED CELL DISTRIBUTION WIDTH 14.3 % (11.6-14.6)
[2019-07-30 12:01] LABS: CHLORIDE 107 mEq/L (98-107)
[2019-07-30] MEDS ORDERED: MORPHINE SULFATE 4 MG/ML CPJ (NOT FOR IM USE) IV STA (13:20)
[2019-07-30 15:44] LABS: CLARITY URINE CLEAR (CLEAR); COLOR URINE YELLOW (YELLOW); KETONES URINE NEGATIVE (NEGATIVE); LEUKOCYTE ESTERASE URINE TRACE (NEGATIVE); NITRITE URINE NEGATIVE (NEGATIVE); OCCULT BLOOD URINE NEGATIVE (NEGATIVE); PH URINE 6.5 (4.5-8.0); PROTEIN URINE 2+ (NEGATIVE); SPECIFIC GRAVITY URINE 1.006 (1.005-1.030); UROBILINOGEN URINE 0.2 E.U./dL (0.2-1.0)
[2019-07-30 17:40] VITALS: BP 188/82
[2019-07-30] MEDS ORDERED: ASPI-1393 PO (18:07)
[2019-07-30] MEDS ORDERED: METO-293 PO (18:07)
[2019-07-30] MEDS ORDERED: ASPI325T85 MT (18:07)
[2019-07-30] MEDS ORDERED: CIPR500S3 PO (18:07)
[2019-07-30] MEDS ORDERED: SERT50TA MT (18:07)
[2019-07-30] MEDS ORDERED: METO10TA3 PO (18:07)
[2019-07-30] MEDS ORDERED: DOCUSATE SODIUM 100MG CAPSULE PO PRN ×2 (18:15)
[2019-07-30] MEDS ORDERED: ENOXAPARIN 40MG/0.4ML SYR SUBCUT SCH (18:15)
[2019-07-30] MEDS ORDERED: CLONIDINE 0.1MG TABLET PO PRN (18:15)
[2019-07-30] MEDS ORDERED: METOCLOPRAMIDE HCL 10MG/2ML VIAL IV PRN (18:15)
[2019-07-30] MEDS ORDERED: ONDANSETRON HCL 4MG/2ML INJ IV PRN (18:15)
[2019-07-30] MEDS ORDERED: ACETAMINOPHEN 325MG TABLET PO PRN (18:15)
[2019-07-30] MEDS ORDERED: GUAIFENESIN 200MG/10ML SUGAR FREE UDC PO PRN (18:15)
[2019-07-30] MEDS: AMLODIPINE 10MG TABLET PO SCH (18:35)
[2019-07-30] MEDS: HYDROCODONE/ACETAMINOPHEN 5/325MG TABLET PO PRN (18:36)
[2019-07-30 20:00] VITALS: BP 140/56
[2019-07-30] MEDS ORDERED: DEXTROSE 50% WATER 50ML SYRINGE IV PRN (20:30)
[2019-07-30] MEDS: ENOXAPARIN 30MG/0.3ML SYR SUBCUT SCH (20:41)
[2019-07-30] MEDS: ATORVASTATIN CALCIUM 40MG TABLET PO SCH (20:42)
[2019-07-30] MEDS: GABAPENTIN 300MG CAPSULE PO SCH (20:42)
[2019-07-30] MEDS: HYDRALAZINE HCL 100MG TABLET PO SCH (20:42)
[2019-07-30] MEDS: PANTOPRAZOLE SODIUM 40 MG/VIAL IV SCH (20:48)
[2019-07-30] MEDS: INSULIN LISPRO 100 UNITS/ML SUBCUT SCH (21:00)
[2019-07-30] MEDS: BLOOD SUGAR DIAGNOSTIC STRIP TEST SCH (21:37)
[2019-07-30] MEDS: INSULIN GLARGINE UD 100 UNITS/ML SYR SUBCUT SCH (22:00)
[2019-07-31] VITALS: BP 127/54
[2019-07-31 01:52] LABS: CREATINE KINASE 61 IU/L (26-192)
[2019-07-31 01:53] LABS: CREATINE KINASE MB FRACTION 1.4 ng/mL (0.5-3.6)
[2019-07-31 04:00] VITALS: BP 133/66
[2019-07-31] MEDS: GABAPENTIN 300MG CAPSULE PO SCH ×3 (05:26→23:00)
[2019-07-31] MEDS: LEVOTHYROXINE SODIUM 25MCG TABLET PO SCH (05:27)
[2019-07-31] MEDS: BLOOD SUGAR DIAGNOSTIC STRIP TEST SCH ×4 (07:01→21:42)
[2019-07-31] MEDS: INSULIN LISPRO 100 UNITS/ML SUBCUT SCH ×4 (07:39→21:42)
[2019-07-31 08:00] VITALS: BP 124/52
[2019-07-31 08:18] LABS: EOSINOPHILS % 1.8 % (0.0-5.0); HEMATOCRIT. 28.6 % (36.0-48.0); HEMOGLOBIN. 9.2 g/dL (12.0-16.0); LYMPHOCYTES % 30.7 % (20.0-50.0); MEAN CORPUSCULAR HEMOGLOBIN 27.1 pg (28.0-32.0); MEAN CORPUSCULAR VOLUME 84.5 fL (81.0-99.0); MEAN PLATELET VOLUME 9.1 fl (7.4-10.4); NEUTROPHILS % 57.5 % (40.0-76.0); PLATELET 168 x1000/uL (130-400); RED BLOOD CELL COUNT 3.39 mill/uL (4.2-5.4); RED CELL DISTRIBUTION WIDTH 14.3 % (11.6-14.6)
[2019-07-31] MEDS ORDERED: ASPIRIN 325MG EC TABLET PO SCH (09:00)
[2019-07-31 09:08] LABS: CHLORIDE 110 mEq/L (98-107)
[2019-07-31 09:18] LABS: LDL CHOLESTEROL 50 mg/dL (5-100)
[2019-07-31 09:20] LABS: CREATINE KINASE 62 IU/L (26-192); HDL CHOLESTEROL 43 mg/dL (40-59)
[2019-07-31] MEDS: PANTOPRAZOLE SODIUM 40 MG/VIAL IV SCH (09:20)
[2019-07-31] MEDS: CLOPIDOGREL 75MG TABLET PO SCH (09:23)
[2019-07-31] MEDS: SERTRALINE HCL 50MG TABLET PO SCH (09:24)
[2019-07-31] MEDS: HYDRALAZINE HCL 100MG TABLET PO SCH ×4 (09:24→21:41)
[2019-07-31] MEDS: AMLODIPINE 10MG TABLET PO SCH (09:24)
[2019-07-31 09:26] LABS: CREATINE KINASE MB FRACTION 1.3 ng/mL (0.5-3.6)
[2019-07-31] MEDS: HYDROCODONE/ACETAMINOPHEN 5/325MG TABLET PO PRN ×3 (09:29→22:02)
[2019-07-31] MEDS ORDERED: MAGNESIUM HYDROXIDE 400MG/5ML 30ML UDC PO PRN (10:45)
[2019-07-31] MEDS: METOCLOPRAMIDE HCL 10MG/2ML VIAL IV SCH ×2 (12:13→17:53)
[2019-07-31] MEDS: SODIUM CHLORIDE 0.45% 1,000 ML IV SCH (12:14)
[2019-07-31 16:00] VITALS: BP 129/49
[2019-07-31] MEDS ORDERED: BISACODYL 10MG SUPP PR NR (16:15)
[2019-07-31] MEDS ORDERED: SORBITOL 70% SOLN 30ML PO ONE (18:00)
[2019-07-31 20:00] VITALS: BP 116/50
[2019-07-31] MEDS: SENNOSIDES/DOCUSATE SOD 8.6/50MG TABLET PO SCH (21:00)
[2019-07-31] MEDS: ATORVASTATIN CALCIUM 40MG TABLET PO SCH (21:39)
[2019-07-31] MEDS: ENOXAPARIN 30MG/0.3ML SYR SUBCUT SCH (21:39)
[2019-07-31] MEDS: INSULIN GLARGINE UD 100 UNITS/ML SYR SUBCUT SCH (23:00)
[2019-08-01] VITALS: BP 102/48
[2019-08-01] MEDS: METOCLOPRAMIDE HCL 10MG/2ML VIAL IV SCH ×5 (00:42→23:06)
[2019-08-01] MEDS: SODIUM CHLORIDE 0.45% 1,000 ML IV SCH ×2 (00:43→13:42)
[2019-08-01 04:00] VITALS: BP 105/56
[2019-08-01] MEDS: GABAPENTIN 300MG CAPSULE PO SCH ×3 (06:21→21:03)
[2019-08-01] MEDS: LEVOTHYROXINE SODIUM 25MCG TABLET PO SCH (06:21)
[2019-08-01] MEDS: BLOOD SUGAR DIAGNOSTIC STRIP TEST SCH ×4 (06:22→21:01)
[2019-08-01] MEDS: INSULIN LISPRO 100 UNITS/ML SUBCUT SCH ×4 (07:36→21:00)
[2019-08-01 07:59] LABS: BASOPHILS % 0.6 % (0.0-2.0); EOSINOPHILS % 1.1 % (0.0-5.0); HEMATOCRIT. 30.8 % (36.0-48.0); HEMOGLOBIN. 9.9 g/dL (12.0-16.0); LYMPHOCYTES % 25.9 % (20.0-50.0); MEAN CORPUSCULAR HEMOGLOBIN 27.1 pg (28.0-32.0); MEAN CORPUSCULAR VOLUME 84.5 fL (81.0-99.0); MONOCYTES % 5.9 % (2.0-8.0); NEUTROPHILS % 66.5 % (40.0-76.0); PLATELET 179 x1000/uL (130-400); RED BLOOD CELL COUNT 3.64 mill/uL (4.2-5.4); RED CELL DISTRIBUTION WIDTH 14.4 % (11.6-14.6)
[2019-08-01 08:01] VITALS: BP 93/43
[2019-08-01 08:01] LABS: CHLORIDE 111 mEq/L (98-107)
[2019-08-01] MEDS: HYDRALAZINE HCL 100MG TABLET PO SCH ×4 (08:43→21:00)
[2019-08-01] MEDS: AMLODIPINE 10MG TABLET PO SCH (08:44)
[2019-08-01] MEDS: CLOPIDOGREL 75MG TABLET PO SCH (08:44)
[2019-08-01] MEDS: HYDROCODONE/ACETAMINOPHEN 5/325MG TABLET PO PRN ×3 (08:45→18:38)
[2019-08-01] MEDS: DOCUSATE SODIUM 250MG CAPSULE PO SCH (08:45)
[2019-08-01] MEDS: SERTRALINE HCL 50MG TABLET PO SCH (08:46)
[2019-08-01] MEDS: FAMOTIDINE 20MG/2ML VIAL IV SCH (08:46)
[2019-08-01] MEDS ORDERED: ASPIRIN 325MG EC TABLET PO SCH (09:00)
[2019-08-01] MEDS: ASPIRIN 81MG EC TABLET PO SCH (09:32)
[2019-08-01 12:08] VITALS: BP 128/43
[2019-08-01 16:12] VITALS: BP 119/50
[2019-08-01 20:00] VITALS: BP 130/57
[2019-08-01] MEDS: ATORVASTATIN CALCIUM 40MG TABLET PO SCH (21:00)
[2019-08-01] MEDS: SENNOSIDES/DOCUSATE SOD 8.6/50MG TABLET PO SCH (21:00)
[2019-08-01] MEDS: ENOXAPARIN 30MG/0.3ML SYR SUBCUT SCH (21:00)
[2019-08-01] MEDS: INSULIN GLARGINE UD 100 UNITS/ML SYR SUBCUT SCH (21:05)
[2019-08-02] VITALS: BP 116/45
[2019-08-02] MEDS: HYDROCODONE/ACETAMINOPHEN 5/325MG TABLET PO PRN ×4 (02:32→21:32)
[2019-08-02 04:00] VITALS: BP 142/53
[2019-08-02] MEDS: GABAPENTIN 300MG CAPSULE PO SCH ×3 (06:18→21:15)
[2019-08-02] MEDS: METOCLOPRAMIDE HCL 10MG/2ML VIAL IV SCH ×4 (06:18→23:51)
[2019-08-02] MEDS: SODIUM CHLORIDE 0.45% 1,000 ML IV SCH ×2 (06:22→17:59)
[2019-08-02] MEDS: LEVOTHYROXINE SODIUM 25MCG TABLET PO SCH (06:23)
[2019-08-02 06:29] LABS: BASOPHILS % 0.9 % (0.0-2.0); EOSINOPHILS % 1.5 % (0.0-5.0); HEMOGLOBIN. 9.3 g/dL (12.0-16.0); LYMPHOCYTES % 28.9 % (20.0-50.0); MONOCYTES % 7.9 % (2.0-8.0); NEUTROPHILS % 60.8 % (40.0-76.0); PLATELET 161 x1000/uL (130-400); RED BLOOD CELL COUNT 3.46 mill/uL (4.2-5.4); RED CELL DISTRIBUTION WIDTH 14.2 % (11.6-14.6)
[2019-08-02] MEDS: BLOOD SUGAR DIAGNOSTIC STRIP TEST SCH ×4 (06:51→21:28)
[2019-08-02] MEDS: INSULIN LISPRO 100 UNITS/ML SUBCUT SCH ×4 (07:44→21:00)
[2019-08-02 08:44] VITALS: BP 134/43
[2019-08-02] MEDS: HYDRALAZINE HCL 100MG TABLET PO SCH ×4 (09:05→21:15)
[2019-08-02] MEDS: ASPIRIN 81MG EC TABLET PO SCH (09:05)
[2019-08-02] MEDS: CLOPIDOGREL 75MG TABLET PO SCH (09:05)
[2019-08-02] MEDS: DOCUSATE SODIUM 250MG CAPSULE PO SCH (09:05)
[2019-08-02] MEDS: SERTRALINE HCL 50MG TABLET PO SCH (09:05)
[2019-08-02] MEDS: AMLODIPINE 10MG TABLET PO SCH (09:06)
[2019-08-02] MEDS: FAMOTIDINE 20MG/2ML VIAL IV SCH (09:08)
[2019-08-02 11:52] VITALS: BP 146/46
[2019-08-02 20:42] VITALS: BP 127/32
[2019-08-02] MEDS: SENNOSIDES/DOCUSATE SOD 8.6/50MG TABLET PO SCH (21:00)
[2019-08-02] MEDS: ENOXAPARIN 30MG/0.3ML SYR SUBCUT SCH (21:15)
[2019-08-02] MEDS: ATORVASTATIN CALCIUM 40MG TABLET PO SCH (21:15)
[2019-08-02] MEDS: INSULIN GLARGINE UD 100 UNITS/ML SYR SUBCUT SCH (21:16)
[2019-08-03 00:49] VITALS: BP 136/60
[2019-08-03] MEDS: HYDROCODONE/ACETAMINOPHEN 5/325MG TABLET PO PRN ×4 (03:11→20:53)
[2019-08-03 04:00] VITALS: BP 140/55
[2019-08-03] MEDS: METOCLOPRAMIDE HCL 10MG/2ML VIAL IV SCH ×3 (05:26→18:23)
[2019-08-03] MEDS: GABAPENTIN 300MG CAPSULE PO SCH ×3 (05:26→22:26)
[2019-08-03 05:55] LABS: EOSINOPHILS % 2.1 % (0.0-5.0); HEMOGLOBIN. 9.5 g/dL (12.0-16.0); LYMPHOCYTES % 32.5 % (20.0-50.0); MEAN CORPUSCULAR HEMOGLOBIN 27.3 pg (28.0-32.0); MEAN CORPUSCULAR VOLUME 83.1 fL (81.0-99.0); MEAN PLATELET VOLUME 9.2 fl (7.4-10.4); MONOCYTES % 7.6 % (2.0-8.0); NEUTROPHILS % 56.8 % (40.0-76.0); PLATELET 175 x1000/uL (130-400); RED BLOOD CELL COUNT 3.49 mill/uL (4.2-5.4)
[2019-08-03] MEDS: LEVOTHYROXINE SODIUM 25MCG TABLET PO SCH (06:29)
[2019-08-03] MEDS: BLOOD SUGAR DIAGNOSTIC STRIP TEST SCH ×4 (06:29→21:00)
[2019-08-03] MEDS: INSULIN LISPRO 100 UNITS/ML SUBCUT SCH ×4 (07:50→21:00)
[2019-08-03 08:00] VITALS: BP 171/60
[2019-08-03] MEDS: ASPIRIN 81MG EC TABLET PO SCH (09:53)
[2019-08-03] MEDS: CLOPIDOGREL 75MG TABLET PO SCH (09:53)
[2019-08-03] MEDS: HYDRALAZINE HCL 100MG TABLET PO SCH ×4 (09:55→20:54)
[2019-08-03] MEDS: SERTRALINE HCL 50MG TABLET PO SCH (09:55)
[2019-08-03] MEDS: FAMOTIDINE 20MG/2ML VIAL IV SCH (09:55)
[2019-08-03] MEDS: AMLODIPINE 10MG TABLET PO SCH (09:57)
[2019-08-03] MEDS: DOCUSATE SODIUM 250MG CAPSULE PO SCH (10:01)
[2019-08-03] MEDS: SODIUM CHLORIDE 0.45% 1,000 ML IV SCH ×2 (10:03→22:27)
[2019-08-03] MEDS ORDERED: MAGNESIUM/ALUMINUM HYDROXIDE/SIMETHICONE 30ML UDC PO SCH (10:30)
[2019-08-03 12:00] VITALS: BP 149/59
[2019-08-03 16:00] VITALS: BP 135/43
[2019-08-03 20:00] VITALS: BP 142/60
[2019-08-03] MEDS: ATORVASTATIN CALCIUM 40MG TABLET PO SCH (20:53)
[2019-08-03] MEDS: SENNOSIDES/DOCUSATE SOD 8.6/50MG TABLET PO SCH (20:54)
[2019-08-03] MEDS: ENOXAPARIN 30MG/0.3ML SYR SUBCUT SCH (20:55)
[2019-08-03] MEDS: INSULIN GLARGINE UD 100 UNITS/ML SYR SUBCUT SCH (22:39)
[2019-08-04] VITALS: BP 151/62
[2019-08-04] MEDS: HYDROCODONE/ACETAMINOPHEN 5/325MG TABLET PO PRN ×3 (01:03→13:32)
[2019-08-04] MEDS: METOCLOPRAMIDE HCL 10MG/2ML VIAL IV SCH ×4 (01:05→17:43)
[2019-08-04 04:00] VITALS: BP 159/68
[2019-08-04] MEDS: LEVOTHYROXINE SODIUM 25MCG TABLET PO SCH (06:43)
[2019-08-04] MEDS: GABAPENTIN 300MG CAPSULE PO SCH ×3 (06:43→21:33)
[2019-08-04] MEDS: BLOOD SUGAR DIAGNOSTIC STRIP TEST SCH ×4 (06:43→20:59)
[2019-08-04] MEDS: INSULIN LISPRO 100 UNITS/ML SUBCUT SCH ×4 (07:50→21:00)
[2019-08-04] MEDS: FAMOTIDINE 20MG/2ML VIAL IV SCH (08:53)
[2019-08-04] MEDS: AMLODIPINE 10MG TABLET PO SCH (09:04)
[2019-08-04] MEDS: ASPIRIN 81MG EC TABLET PO SCH (09:05)
[2019-08-04] MEDS: DOCUSATE SODIUM 250MG CAPSULE PO SCH (09:05)
[2019-08-04] MEDS: HYDRALAZINE HCL 100MG TABLET PO SCH ×4 (09:05→21:34)
[2019-08-04] MEDS: SERTRALINE HCL 50MG TABLET PO SCH (09:05)
[2019-08-04] MEDS: CLOPIDOGREL 75MG TABLET PO SCH (13:31)
[2019-08-04] MEDS ORDERED: DIATR MEGLU/DIATRIZOATE SOLN 30ML PO NR (15:45)
[2019-08-04] MEDS: SODIUM CHLORIDE 0.45% 1,000 ML IV SCH (17:46)
[2019-08-04 18:21] LABS: CLARITY URINE CLEAR (CLEAR); COLOR URINE YELLOW (YELLOW); KETONES URINE NEGATIVE (NEGATIVE); LEUKOCYTE ESTERASE URINE TRACE (NEGATIVE); NITRITE URINE NEGATIVE (NEGATIVE); OCCULT BLOOD URINE NEGATIVE (NEGATIVE); PH URINE 5.5 (4.5-8.0); PROTEIN URINE 2+ (NEGATIVE); SPECIFIC GRAVITY URINE 1.007 (1.005-1.030); UROBILINOGEN URINE 0.2 E.U./dL (0.2-1.0)
[2019-08-04 20:00] VITALS: BP 144/56
[2019-08-04] MEDS: ATORVASTATIN CALCIUM 40MG TABLET PO SCH (20:12)
[2019-08-04] MEDS: SENNOSIDES/DOCUSATE SOD 8.6/50MG TABLET PO SCH (20:13)
[2019-08-04] MEDS: TRAMADOL 50MG TABLET PO PRN (20:14)
[2019-08-04] MEDS: ENOXAPARIN 30MG/0.3ML SYR SUBCUT SCH (20:21)
[2019-08-05] VITALS: BP 135/69
[2019-08-05] MEDS: METOCLOPRAMIDE HCL 10MG/2ML VIAL IV SCH ×4 (00:19→17:42)
[2019-08-05] MEDS: INSULIN GLARGINE UD 100 UNITS/ML SYR SUBCUT SCH (00:24)
[2019-08-05] MEDS: TRAMADOL 50MG TABLET PO PRN ×4 (02:53→16:34)
[2019-08-05] MEDS: SODIUM CHLORIDE 0.45% 1,000 ML IV SCH (03:54)
[2019-08-05 04:00] VITALS: BP 155/69
[2019-08-05] MEDS ORDERED: DIATR MEGLU/DIATRIZOATE SOLN 30ML PO SCH ×2 (05:30→08:45)
[2019-08-05 06:00] LABS: EOSINOPHILS % 1.5 % (0.0-5.0); HEMATOCRIT. 30.7 % (36.0-48.0); LYMPHOCYTES % 25.3 % (20.0-50.0); MEAN CORPUSCULAR HEMOGLOBIN 27.3 pg (28.0-32.0); MEAN CORPUSCULAR VOLUME 83.6 fL (81.0-99.0); MONOCYTES % 9.6 % (2.0-8.0); NEUTROPHILS % 62.6 % (40.0-76.0); PLATELET 162 x1000/uL (130-400); RED BLOOD CELL COUNT 3.67 mill/uL (4.2-5.4); RED CELL DISTRIBUTION WIDTH 13.8 % (11.6-14.6)
[2019-08-05] MEDS: GABAPENTIN 300MG CAPSULE PO SCH ×2 (06:36→13:10)
[2019-08-05] MEDS: BLOOD SUGAR DIAGNOSTIC STRIP TEST SCH ×3 (06:36→16:24)
[2019-08-05] MEDS: LEVOTHYROXINE SODIUM 25MCG TABLET PO SCH (06:36)
[2019-08-05] MEDS: INSULIN LISPRO 100 UNITS/ML SUBCUT SCH ×3 (07:40→16:27)
[2019-08-05 08:00] VITALS: BP 182/69
[2019-08-05] MEDS: ASPIRIN 81MG EC TABLET PO SCH (08:42)
[2019-08-05] MEDS: DOCUSATE SODIUM 250MG CAPSULE PO SCH (08:42)
[2019-08-05] MEDS: FAMOTIDINE 20MG/2ML VIAL IV SCH (08:42)
[2019-08-05] MEDS: SERTRALINE HCL 50MG TABLET PO SCH (08:43)
[2019-08-05] MEDS: CLOPIDOGREL 75MG TABLET PO SCH (08:43)
[2019-08-05] MEDS: HYDRALAZINE HCL 100MG TABLET PO SCH ×3 (08:43→16:25)
[2019-08-05] MEDS: AMLODIPINE 10MG TABLET PO SCH (08:43)
[2019-08-05 12:00] VITALS: BP 162/57
[2019-08-05 16:00] VITALS: BP 138/70
[2019-08-05 17:09] VITALS: BP 138/50
== END 2019-08-05 18:40 | disposition home health service (06) | DRG 683 ==
LOC: ER 09:59 → 6WST 15:46 → EDBEDREQ 15:59 → EDBEDREQTM 15:59 → ENRESERV 16:05
PROVIDERS: ADMIT Hospitalist; ATTEND Hospitalist
DX: N17.9 Acute kidney failure, unspecified (principal); I13.0 Hypertensive heart and chronic kidney disease with heart failure and stage 1 through stage 4 chronic kidney disease, or unspecified chronic kidney disease; K57.90 Diverticulosis of intestine, part unspecified, without perforation or abscess without bleeding; N18.4 Chronic kidney disease, stage 4 (severe); E11.43 Type 2 diabetes mellitus with diabetic autonomic (poly)neuropathy; E03.9 Hypothyroidism, unspecified; I50.9 Heart failure, unspecified; E11.22 Type 2 diabetes mellitus with diabetic chronic kidney disease; I45.81 Long QT syndrome; E11.319 Type 2 diabetes mellitus with unspecified diabetic retinopathy without macular edema; E11.51 Type 2 diabetes mellitus with diabetic peripheral angiopathy without gangrene; I25.10 Atherosclerotic heart disease of native coronary artery without angina pectoris; E78.5 Hyperlipidemia, unspecified; E86.0 Dehydration; J44.9 Chronic obstructive pulmonary disease, unspecified; K31.84 Gastroparesis; K59.00 Constipation, unspecified; G40.909 Epilepsy, unspecified, not intractable, without status epilepticus; Z79.4 Long term (current) use of insulin; Z79.82 Long term (current) use of aspirin; Z90.710 Acquired absence of both cervix and uterus; Z86.73 Personal history of transient ischemic attack (TIA), and cerebral infarction without residual deficits; Z95.5 Presence of coronary angioplasty implant and graft; Z95.828 Presence of other vascular implants and grafts; I25.2 Old myocardial infarction; Z86.718 Personal history of other venous thrombosis and embolism; Z90.89 Acquired absence of other organs; Z98.51 Tubal ligation status; Z98.891 History of uterine scar from previous surgery; Z88.0 Allergy status to penicillin
CPT/HCPCS: 36415; 71045; 74176; 76700; 76856; 80048; 80061; 81003; 82550; 82553; 82962; 83036; 83735; 84484; 93005; 93306; 93970; 97162; 99285; C9113; J1650; J1815; J2270; J2405; J2765; J3490; J7030; Q9963

== ENCOUNTER 2019-09-08 17:10 | Inpatient (IN) | payer MEDICARE, MEDICAID ==
[~2019-09-08] VITALS: Ht 172.7 cm; Wt 80.4 kg
[~2019-09-08 17:10] MED LIST changes: +ASPI-1393 PO; +ASPI325T85 MT; +CIPR500S3 PO; +METO-293 PO; +METO10TA3 PO; +SERT50TA MT
[2019-09-08] MEDS ORDERED: SODIUM CHLORIDE 0.9% 1,000 ML IV ONE (19:30)
[2019-09-08] MEDS ORDERED: ONDANSETRON HCL 4MG/2ML INJ IV STA (19:30)
[2019-09-08] MEDS ORDERED: MORPHINE SULFATE 4 MG/ML CPJ (NOT FOR IM USE) IV STA (19:30)
[2019-09-08 20:06] LABS: HEMATOCRIT. 34.5 % (36.0-48.0); HEMOGLOBIN. 11.2 g/dL (12.0-16.0); MEAN CORPUSCULAR HEMOGLOBIN 27.4 pg (28.0-32.0); MEAN CORPUSCULAR VOLUME 84.7 fL (81.0-99.0); MEAN PLATELET VOLUME 9.2 fl (7.4-10.4); PLATELET 236 x1000/uL (130-400); RED BLOOD CELL COUNT 4.07 mill/uL (4.2-5.4); RED CELL DISTRIBUTION WIDTH 14.7 % (11.6-14.6)
[2019-09-08 20:21] LABS: CHLORIDE 101 mEq/L (98-107)
[2019-09-08 20:39] LABS: PLATELET ESTIMATE NORMAL
[2019-09-08] MEDS ORDERED: DIPHENHYDRAMINE 50MG/ML VIAL IV PRN (22:45)
[2019-09-08] MEDS ORDERED: DOCUSATE SODIUM 100MG CAPSULE PO PRN (22:45)
[2019-09-08] MEDS ORDERED: MAGNESIUM/ALUMINUM HYDROXIDE/SIMETHICONE 30ML UDC PO PRN (22:45)
[2019-09-08] MEDS ORDERED: HYDROCODONE/ACETAMINOPHEN 5/325MG TABLET PO PRN (22:45)
[2019-09-08] MEDS ORDERED: CLONIDINE 0.1MG TABLET PO PRN (22:45)
[2019-09-08] MEDS ORDERED: ACETAMINOPHEN 325MG TABLET PO PRN (22:45)
[2019-09-09] VITALS: BP 166/75
[2019-09-09] MEDS: MORPHINE SULFATE 4 MG/ML CPJ (NOT FOR IM USE) IV PRN ×2 (00:12→06:04)
[2019-09-09] MEDS: ONDANSETRON HCL 4MG/2ML INJ IV PRN ×2 (00:13→18:32)
[2019-09-09] MEDS ORDERED: DEXT 5%/0.45% NACL 1000ML 1,000 ML IV SCH (00:15)
[2019-09-09 04:00] VITALS: BP 119/77
[2019-09-09 07:28] LABS: BASOPHILS % 0.5 % (0.0-2.0); EOSINOPHILS % 0.7 % (0.0-5.0); HEMATOCRIT. 32.4 % (36.0-48.0); HEMOGLOBIN. 10.3 g/dL (12.0-16.0); LYMPHOCYTES % 15.4 % (20.0-50.0); MEAN CORPUSCULAR HEMOGLOBIN 27.1 pg (28.0-32.0); MEAN CORPUSCULAR VOLUME 85.5 fL (81.0-99.0); MONOCYTES % 8.9 % (2.0-8.0); NEUTROPHILS % 74.5 % (40.0-76.0); PLATELET 197 x1000/uL (130-400); RED BLOOD CELL COUNT 3.79 mill/uL (4.2-5.4); RED CELL DISTRIBUTION WIDTH 14.6 % (11.6-14.6)
[2019-09-09 08:00] VITALS: BP 124/62
[2019-09-09] MEDS: PANTOPRAZOLE SODIUM 40 MG/VIAL IV SCH (08:31)
[2019-09-09] MEDS: MORPHINE SULFATE 2 MG/ML CPJ (NOT FOR IM USE) IV PRN ×2 (11:59→18:34)
[2019-09-09 12:00] VITALS: BP 126/59
[2019-09-09] MEDS: DEXT 5%/0.45% NACL KCL 20MEQ/L 1,000 ML IV SCH ×2 (17:14→21:00)
[2019-09-09 20:00] VITALS: BP 96/60
[2019-09-09 20:17] LABS: CLARITY URINE CLEAR (CLEAR); COLOR URINE YELLOW (YELLOW); KETONES URINE NEGATIVE (NEGATIVE); LEUKOCYTE ESTERASE URINE TRACE (NEGATIVE); NITRITE URINE NEGATIVE (NEGATIVE); OCCULT BLOOD URINE NEGATIVE (NEGATIVE); PROTEIN URINE 2+ (NEGATIVE); SPECIFIC GRAVITY URINE 1.013 (1.005-1.030); UROBILINOGEN URINE 0.2 E.U./dL (0.2-1.0)
[2019-09-10] VITALS: BP 100/68
[2019-09-10] MEDS: MORPHINE SULFATE 2 MG/ML CPJ (NOT FOR IM USE) IV PRN ×5 (02:03→22:15)
[2019-09-10 04:00] VITALS: BP 101/65
[2019-09-10] MEDS: DEXT 5%/0.45% NACL KCL 20MEQ/L 1,000 ML IV SCH ×3 (05:00→17:44)
[2019-09-10 05:34] LABS: BASOPHILS % 0.4 % (0.0-2.0); EOSINOPHILS % 1.1 % (0.0-5.0); HEMOGLOBIN. 9.8 g/dL (12.0-16.0); LYMPHOCYTES % 11.6 % (20.0-50.0); MEAN CORPUSCULAR HEMOGLOBIN 27.2 pg (28.0-32.0); MEAN CORPUSCULAR VOLUME 85.9 fL (81.0-99.0); MEAN PLATELET VOLUME 8.8 fl (7.4-10.4); MONOCYTES % 9.7 % (2.0-8.0); NEUTROPHILS % 77.2 % (40.0-76.0); PLATELET 177 x1000/uL (130-400); RED BLOOD CELL COUNT 3.61 mill/uL (4.2-5.4); RED CELL DISTRIBUTION WIDTH 14.4 % (11.6-14.6)
[2019-09-10 08:00] VITALS: BP 167/72
[2019-09-10] MEDS: PANTOPRAZOLE SODIUM 40 MG/VIAL IV SCH (10:36)
[2019-09-10] MEDS: ENOXAPARIN 30MG/0.3ML SYR SUBCUT SCH (10:36)
[2019-09-10 12:00] VITALS: BP 179/75
[2019-09-10] MEDS: ONDANSETRON HCL 4MG/2ML INJ IV PRN (14:09)
[2019-09-10 16:00] VITALS: BP 161/74
[2019-09-10 20:00] VITALS: BP 158/67
[2019-09-11] VITALS: BP 177/76
[2019-09-11] MEDS: DEXT 5%/0.45% NACL KCL 20MEQ/L 1,000 ML IV SCH (01:37)
[2019-09-11 04:00] VITALS: BP 153/75
[2019-09-11 07:32] LABS: BASOPHILS % 0.2 % (0.0-2.0); EOSINOPHILS % 0.6 % (0.0-5.0); HEMATOCRIT. 29.9 % (36.0-48.0); HEMOGLOBIN. 9.6 g/dL (12.0-16.0); LYMPHOCYTES % 9.1 % (20.0-50.0); MEAN CORPUSCULAR HEMOGLOBIN 27.5 pg (28.0-32.0); MEAN CORPUSCULAR VOLUME 85.7 fL (81.0-99.0); MEAN PLATELET VOLUME 8.8 fl (7.4-10.4); MONOCYTES % 11.4 % (2.0-8.0); NEUTROPHILS % 78.7 % (40.0-76.0); PLATELET 165 x1000/uL (130-400); RED BLOOD CELL COUNT 3.49 mill/uL (4.2-5.4)
[2019-09-11 08:00] VITALS: BP 180/80
[2019-09-11] MEDS: ENOXAPARIN 30MG/0.3ML SYR SUBCUT SCH (09:12)
[2019-09-11] MEDS: PANTOPRAZOLE SODIUM 40 MG/VIAL IV SCH (09:12)
[2019-09-11] MEDS: MORPHINE SULFATE 2 MG/ML CPJ (NOT FOR IM USE) IV PRN ×2 (09:13→19:16)
[2019-09-11] MEDS: DEXT 5%/0.45% NACL 1000ML 1,000 ML IV SCH ×2 (11:05→20:34)
[2019-09-11 12:00] VITALS: BP 158/77
[2019-09-11] MEDS: CLONIDINE HCL 0.1MG/24HR PATCH TD SCH (13:32)
[2019-09-11 16:00] VITALS: BP 165/81
[2019-09-11] MEDS: HYDRALAZINE 20MG/ML VIAL IV PRN (19:04)
[2019-09-11 20:00] VITALS: BP 167/68
[2019-09-11 22:30] LABS: CREATININE URINE (RAW) 64.8 mg/dl
[2019-09-12] VITALS: BP 155/74
[2019-09-12 04:00] VITALS: BP 158/81
[2019-09-12] MEDS: DEXT 5%/0.45% NACL 1000ML 1,000 ML IV SCH ×2 (05:59→15:25)
[2019-09-12] MEDS: MORPHINE SULFATE 2 MG/ML CPJ (NOT FOR IM USE) IV PRN ×3 (06:00→18:12)
[2019-09-12 06:52] LABS: BASOPHILS % 0.3 % (0.0-2.0); EOSINOPHILS % 0.2 % (0.0-5.0); HEMATOCRIT. 31.3 % (36.0-48.0); HEMOGLOBIN. 9.7 g/dL (12.0-16.0); LYMPHOCYTES % 7.2 % (20.0-50.0); MEAN CORPUSCULAR HEMOGLOBIN 26.8 pg (28.0-32.0); MEAN PLATELET VOLUME 9.3 fl (7.4-10.4); MONOCYTES % 12.4 % (2.0-8.0); NEUTROPHILS % 79.9 % (40.0-76.0); PLATELET 167 x1000/uL (130-400); RED BLOOD CELL COUNT 3.64 mill/uL (4.2-5.4); RED CELL DISTRIBUTION WIDTH 14.3 % (11.6-14.6)
[2019-09-12 08:00] VITALS: BP 118/82
[2019-09-12] MEDS: PANTOPRAZOLE SODIUM 40 MG/VIAL IV SCH (10:04)
[2019-09-12] MEDS: ENOXAPARIN 30MG/0.3ML SYR SUBCUT SCH (10:05)
[2019-09-12 12:00] VITALS: BP 161/73
[2019-09-12] MEDS: ONDANSETRON HCL 4MG/2ML INJ IV PRN ×2 (13:33→21:31)
[2019-09-12] MEDS ORDERED: ASPIRIN 300MG SUPP PR NR (15:30)
[2019-09-12 16:00] VITALS: BP 148/78
[2019-09-12 20:00] VITALS: BP 149/77
[2019-09-13] VITALS: BP 156/70
[2019-09-13] MEDS: DEXT 5%/0.45% NACL 1000ML 1,000 ML IV SCH ×3 (01:28→22:57)
[2019-09-13 04:00] VITALS: BP 158/77
[2019-09-13 08:05] LABS: BASOPHILS % 0.3 % (0.0-2.0); HEMATOCRIT. 28.6 % (36.0-48.0); HEMOGLOBIN. 9.1 g/dL (12.0-16.0); LYMPHOCYTES % 9.3 % (20.0-50.0); MEAN CORPUSCULAR HEMOGLOBIN 27.2 pg (28.0-32.0); MEAN CORPUSCULAR VOLUME 85.1 fL (81.0-99.0); MEAN PLATELET VOLUME 9.3 fl (7.4-10.4); MONOCYTES % 11.5 % (2.0-8.0); NEUTROPHILS % 77.9 % (40.0-76.0); PLATELET 161 x1000/uL (130-400); RED BLOOD CELL COUNT 3.36 mill/uL (4.2-5.4); RED CELL DISTRIBUTION WIDTH 14.2 % (11.6-14.6)
[2019-09-13 08:33] VITALS: BP 160/75
[2019-09-13] MEDS: ENOXAPARIN 30MG/0.3ML SYR SUBCUT SCH (09:16)
[2019-09-13] MEDS: PANTOPRAZOLE SODIUM 40 MG/VIAL IV SCH (09:17)
[2019-09-13] MEDS: MORPHINE SULFATE 2 MG/ML CPJ (NOT FOR IM USE) IV PRN ×2 (09:18→13:51)
[2019-09-13] MEDS ORDERED: DIATR MEGLU/DIATRIZOATE SOLN 120ML ONE (09:30)
[2019-09-13 12:08] VITALS: BP 143/69
[2019-09-13 15:24] VITALS: BP 123/72
[2019-09-13 20:00] VITALS: BP 122/77
[2019-09-13] MEDS: ONDANSETRON HCL 4MG/2ML INJ IV PRN (23:02)
[2019-09-14] VITALS: BP 166/88
[2019-09-14] MEDS: MORPHINE SULFATE 2 MG/ML CPJ (NOT FOR IM USE) IV PRN (01:46)
[2019-09-14 04:00] VITALS: BP 120/74
[2019-09-14] MEDS: DEXT 5%/0.45% NACL 1000ML 1,000 ML IV SCH ×3 (06:41→19:41)
[2019-09-14 08:00] VITALS: BP 107/58
[2019-09-14] MEDS: ASPIRIN 300MG SUPP PR SCH (09:24)
[2019-09-14] MEDS: ENOXAPARIN 30MG/0.3ML SYR SUBCUT SCH (09:24)
[2019-09-14] MEDS: PANTOPRAZOLE SODIUM 40 MG/VIAL IV SCH (09:24)
[2019-09-14] MEDS ORDERED: INSULIN LISPRO 100 UNITS/ML SUBCUT SCH ×2 (10:30→13:10)
[2019-09-14] MEDS ORDERED: DEXTROSE 50% WATER 50ML SYRINGE IV PRN (10:30)
[2019-09-14 11:22] LABS: HEMATOCRIT. 31.1 % (36.0-48.0); HEMOGLOBIN. 9.8 g/dL (12.0-16.0); MEAN CORPUSCULAR HEMOGLOBIN 27.2 pg (28.0-32.0); MEAN CORPUSCULAR VOLUME 86.2 fL (81.0-99.0); MEAN PLATELET VOLUME 9.6 fl (7.4-10.4); PLATELET 208 x1000/uL (130-400); RED BLOOD CELL COUNT 3.61 mill/uL (4.2-5.4); RED CELL DISTRIBUTION WIDTH 14.5 % (11.6-14.6)
[2019-09-14 12:00] VITALS: BP 85/38
[2019-09-14] MEDS: BLOOD SUGAR DIAGNOSTIC STRIP TEST SCH ×2 (12:00→18:08)
[2019-09-14] MEDS ORDERED: BLOOD SUGAR DIAGNOSTIC STRIP TEST SCH (12:40)
[2019-09-14 13:45] LABS: PLATELET ESTIMATE NORMAL
[2019-09-14] MEDS: ONDANSETRON HCL 4MG/2ML INJ IV PRN (15:21)
[2019-09-14] MEDS: INSULIN LISPRO 100 UNITS/ML SUBCUT SCH ×2 (15:25→18:19)
[2019-09-14 16:11] LABS: INR 1.3
[2019-09-14 16:29] VITALS: BP 112/53
[2019-09-14] MEDS ORDERED: MEROPENEM 1,000 MG in SODIUM CHLORIDE 0.9% 100 ML IV SCH (18:00)
[2019-09-14 20:00] VITALS: BP 116/54
[2019-09-14] MEDS ORDERED: LEVOFLOXACIN 500MG PREMIX 100 ML IV SCH (20:00)
[2019-09-14] MEDS: METRONIDAZOLE 500 MG PREMIX 100 ML IV SCH (20:22)
[2019-09-15] VITALS (38 sets, daily range): BP systolic 102–166; BP diastolic 49–83
[2019-09-15] MEDS: INSULIN LISPRO 100 UNITS/ML SUBCUT SCH ×5 (00:28→23:36)
[2019-09-15] MEDS: METRONIDAZOLE 500 MG PREMIX 100 ML IV SCH ×2 (05:31→21:39)
[2019-09-15] MEDS: DEXT 5%/0.45% NACL 1000ML 1,000 ML IV SCH (05:31)
[2019-09-15] MEDS: BLOOD SUGAR DIAGNOSTIC STRIP TEST SCH ×5 (05:42→23:25)
[2019-09-15] MEDS ORDERED: DEXT 5%/0.45% NACL KCL 20MEQ/L 1,000 ML IV SCH (07:24)
[2019-09-15] MEDS ORDERED: BUPIVACAINE HCL/PF 0.5% (5MG/ML) 10ML ONE (07:28)
[2019-09-15] MEDS ORDERED: ONDANSETRON HCL 4MG/2ML INJ IV PRN ×2 (07:30→08:15)
[2019-09-15] MEDS ORDERED: FENTANYL CITRATE/PF 50MCG/ML 2ML VIAL ONE (07:38)
[2019-09-15] MEDS ORDERED: ROCURONIUM BROMIDE 10MG/ML VIAL 5ML IV ONE (07:38)
[2019-09-15] MEDS ORDERED: NEOSTIGMINE METHYLSULFATE 1MG/ML 10 ML VIAL ONE (07:38)
[2019-09-15] MEDS ORDERED: PROPOFOL 200MG/20ML VIAL IV ONE (07:38)
[2019-09-15] MEDS ORDERED: GLYCOPYRROLATE 0.2 MG/ML 2ML VIAL ONE (07:39)
[2019-09-15] MEDS ORDERED: MIDAZOLAM HCL 2 MG/2 ML VIAL ONE (07:39)
[2019-09-15] MEDS ORDERED: DEXAMETHASONE 4MG/ML 1ML VIAL ONE (07:54)
[2019-09-15] MEDS ORDERED: HYDROMORPHONE HCL/PF 2MG/ML (OR) ONE (08:03)
[2019-09-15] MEDS ORDERED: LABETALOL 5MG/ML SYR 20 MG/4 ML SYRINGE IV PRN (08:15)
[2019-09-15] MEDS ORDERED: HYDROMORPHONE HCL/PF 2MG/ML CPJ IV PRN (08:15)
[2019-09-15] MEDS ORDERED: MEPERIDINE HCL/PF 25MG/ML CPJ IV PRN (08:15)
[2019-09-15 08:19] LABS: HEMATOCRIT. 26.4 % (36.0-48.0); HEMOGLOBIN. 8.4 g/dL (12.0-16.0); MEAN CORPUSCULAR HEMOGLOBIN 27.5 pg (28.0-32.0); MEAN CORPUSCULAR VOLUME 86.4 fL (81.0-99.0); MEAN PLATELET VOLUME 10.3 fl (7.4-10.4); PLATELET 168 x1000/uL (130-400); RED BLOOD CELL COUNT 3.06 mill/uL (4.2-5.4); RED CELL DISTRIBUTION WIDTH 14.3 % (11.6-14.6)
[2019-09-15] MEDS: ENOXAPARIN 30MG/0.3ML SYR SUBCUT SCH (09:00)
[2019-09-15] MEDS: ASPIRIN 300MG SUPP PR SCH (09:00)
[2019-09-15] MEDS ORDERED: ENOXAPARIN 40MG/0.4ML SYR SUBCUT SCH (09:00)
[2019-09-15] MEDS: PANTOPRAZOLE SODIUM 40 MG/VIAL IV SCH (09:49)
[2019-09-15] MEDS: MORPHINE SULFATE 2 MG/ML CPJ (NOT FOR IM USE) IV PRN ×3 (09:50→23:35)
[2019-09-15] MEDS ORDERED: IPRATROPIUM/ALBUTEROL 0.5-3(2.5)MG/3ML NEB HHN PRN (11:15)
[2019-09-15 11:38] LABS: BG BASE EXCESS -10.3 mmol/L (-2.0-2.0); BG CARBOXYHEMOGLOBIN 0.4 % (0.5-1.5); BG DEOXYHEMOGLOBIN 6.1 % (0.0-5.0); BG HCO3 ACT 15.6 mmol/L (22.0-26.0); BG METHEMOGLOBIN 0.3 % (0.0-1.5); BG OXYGEN SATURATION 93.9 % (92.0-98.5); BG OXYHEMOGLOBIN 93.2 % (94.0-97.0); BG PCO2 34.6 mmHg (35.0-45.0); BG PH 7.272 (7.350-7.450); BG PO2 80.9 mmHg (75.0-100.0); BG SAMPLE SITE RIGHT BRACHIAL; BG TIDAL VOLUME(mL) 500 mL; BG TOTAL HEMOGLOBIN 9.3 g/dL (12.0-18.0); BG VENT MODE VENT - SIMV; BG VENT RATE 12 set
[2019-09-15] MEDS ORDERED: LIDOCAINE HCL 1% 20ML VIAL (Pyxis) INJ ONE (11:40)
[2019-09-15] MEDS ORDERED: MORPHINE SULFATE 2 MG/ML CPJ (NOT FOR IM USE) IV NR (14:00)
[2019-09-15] MEDS ORDERED: AZTREONAM 1G in DEXTROSE 5% WATER 50ML IV SCH (15:00)
[2019-09-15] MEDS: IPRATROPIUM/ALBUTEROL 0.5-3(2.5)MG/3ML NEB HHN SCH ×2 (15:59→20:44)
[2019-09-15 17:20] LABS: PLATELET ESTIMATE NORMAL
[2019-09-15] MEDS ORDERED: DEXT 5%/0.45% NACL 1000ML 1,000 ML IV SCH (17:45)
[2019-09-15] MEDS ORDERED: TOTAL PARENTERAL NUTRITION 1,600 ML IV SCH (21:00)
[2019-09-15] MEDS: AZTREONAM 500 MG in DEXTROSE 5% WATER 50 ML IV SCH (21:39)
[2019-09-15] MEDS ORDERED: INSULIN GLARGINE UD 100 UNITS/ML SYR SUBCUT SCH (22:00)
[2019-09-16] VITALS (98 sets, daily range): BP systolic 73–170; BP diastolic 42–110
[2019-09-16] MEDS: ACETYLCYSTEINE 100MG/ML 10% VIAL 4ML INH SCH ×4 (00:32→23:58)
[2019-09-16] MEDS: IPRATROPIUM/ALBUTEROL 0.5-3(2.5)MG/3ML NEB HHN SCH ×7 (00:32→23:58)
[2019-09-16] MEDS ORDERED: ACETAMINOPHEN 325MG SUPP PR PRN (04:15)
[2019-09-16 05:22] LABS: HEMATOCRIT. 27.2 % (36.0-48.0); HEMOGLOBIN. 8.6 g/dL (12.0-16.0); MEAN CORPUSCULAR HEMOGLOBIN 27.6 pg (28.0-32.0); MEAN CORPUSCULAR VOLUME 87.3 fL (81.0-99.0); MEAN PLATELET VOLUME 10.2 fl (7.4-10.4); PLATELET 173 x1000/uL (130-400); RED BLOOD CELL COUNT 3.12 mill/uL (4.2-5.4)
[2019-09-16 05:32] LABS: PHOSPHORUS 3.4 mg/dL (2.5-4.9)
[2019-09-16] MEDS: INSULIN LISPRO 100 UNITS/ML SUBCUT SCH (06:01)
[2019-09-16] MEDS: AZTREONAM 500 MG in DEXTROSE 5% WATER 50 ML IV SCH ×3 (06:02→22:53)
[2019-09-16] MEDS: BLOOD SUGAR DIAGNOSTIC STRIP TEST SCH ×13 (06:02→22:36)
[2019-09-16] MEDS ORDERED: INSULIN LISPRO 100 UNITS/ML SUBCUT NR ×2 (07:15→10:38)
[2019-09-16] MEDS: PANTOPRAZOLE SODIUM 40 MG/VIAL IV SCH (08:11)
[2019-09-16] MEDS: ENOXAPARIN 30MG/0.3ML SYR SUBCUT SCH ×2 (08:11→09:00)
[2019-09-16] MEDS: METRONIDAZOLE 500 MG PREMIX 100 ML IV SCH ×2 (08:12→21:40)
[2019-09-16] MEDS ORDERED: ALBUTEROL (0.083%) 2.5MG/3ML NEB HHN NR (08:15)
[2019-09-16 08:51] LABS: PLATELET ESTIMATE NORMAL
[2019-09-16] MEDS: ASPIRIN 300MG SUPP PR SCH (09:00)
[2019-09-16] MEDS: ACETAMINOPHEN 650MG SUPP PR PRN (09:27)
[2019-09-16] MEDS: MORPHINE SULFATE 2 MG/ML CPJ (NOT FOR IM USE) IV PRN ×2 (09:40→23:52)
[2019-09-16] MEDS ORDERED: INSULIN GLARGINE UD 100 UNITS/ML SYR SUBCUT SCH ×2 (10:00→22:00)
[2019-09-16] MEDS: SODIUM CHLORIDE 0.9% 1,000 ML IV SCH ×2 (10:30→14:33)
[2019-09-16] MEDS ORDERED: INSULIN GLARGINE UD 100 UNITS/ML SYR SUBCUT NR (11:30)
[2019-09-16] MEDS: VANCOMYCIN 1 G PREMIX 200 ML IV SCH ×2 (12:00→18:15)
[2019-09-16] MEDS ORDERED: INSULIN LISPRO 100 UNITS/ML SUBCUT SCH (12:00)
[2019-09-16] MEDS ORDERED: DEXTROSE 50% WATER 50ML SYRINGE IV PRN ×2 (12:30)
[2019-09-16 14:47] LABS: INR 1.2; PARTIAL THROMBOPLASTIN TIME 35.1 sec (23.4-31.0)
[2019-09-16 15:39] LABS: BG BASE EXCESS -13.1 mmol/L (-2.0-2.0); BG CARBOXYHEMOGLOBIN 0.4 % (0.5-1.5); BG DEOXYHEMOGLOBIN 5.6 % (0.0-5.0); BG FRACTION INSPIRED OXYGEN 100; BG HCO3 ACT 13.9 mmol/L (22.0-26.0); BG METHEMOGLOBIN 0.3 % (0.0-1.5); BG OXYGEN SATURATION 94.4 % (92.0-98.5); BG OXYHEMOGLOBIN 93.7 % (94.0-97.0); BG PH 7.204 (7.350-7.450); BG PO2 83.3 mmHg (75.0-100.0); BG SAMPLE SITE RIGHT RADIAL; BG VENT MODE MASK - NRB
[2019-09-16] MEDS ORDERED: SODIUM BICARBONATE 8.4% 1 MEQ/ML 50ML SYR IV NR (15:45)
[2019-09-16] MEDS ORDERED: PHENYLEPHRINE 20 MG in DEXT 5% WATER 248 ML IV PRN (17:00)
[2019-09-16] MEDS ORDERED: ETOMIDATE 2MG/ML 10ML VIAL IV ONE (17:39)
[2019-09-16] MEDS ORDERED: VECURONIUM BROMIDE 10 MG/VIAL IV ONE (17:39)
[2019-09-16] MEDS: PROPOFOL 10MG/ML 100ML 100 ML IV PRN (17:47)
[2019-09-16] MEDS ORDERED: SODIUM CHLORIDE 3% FOR INH 4ML UD NEB INH NR (18:30)
[2019-09-16 18:50] LABS: BG BASE EXCESS -0.7 mmol/L (-2.0-2.0); BG CARBOXYHEMOGLOBIN 0.1 % (0.5-1.5); BG DEOXYHEMOGLOBIN 1.5 % (0.0-5.0); BG FRACTION INSPIRED OXYGEN 100; BG HCO3 ACT 24.3 mmol/L (22.0-26.0); BG OXYGEN SATURATION 98.5 % (92.0-98.5); BG OXYHEMOGLOBIN 98.4 % (94.0-97.0); BG PO2 154.9 mmHg (75.0-100.0); BG SAMPLE SITE RIGHT RADIAL; BG TIDAL VOLUME(mL) 500 mL; BG VENT MODE VENT - A/C; BG VENT RATE 18 set
[2019-09-16] MEDS ORDERED: LEVOFLOXACIN 250MG PREMIX 50 ML IV SCH (20:00)
[2019-09-16] MEDS: INSULIN REGULAR (DRIP) 100 UNITS in SODIUM CHLORIDE 0.9% 99 ML IV SCH (20:51)
[2019-09-16] MEDS ORDERED: TOTAL PARENTERAL NUTRITION 1,600 ML IV SCH (21:00)
[2019-09-16] MEDS ORDERED: DEXT 5%/0.45% NACL 1000ML 1,000 ML IV SCH (22:30)
[2019-09-17] VITALS (87 sets, daily range): BP systolic 81–171; BP diastolic 44–109
[2019-09-17 00:19] LABS: CLARITY URINE CLOUDY (CLEAR); COLOR URINE DARK YELLOW (YELLOW); KETONES URINE NEGATIVE (NEGATIVE); LEUKOCYTE ESTERASE URINE 2+ (NEGATIVE); NITRITE URINE POSITIVE (NEGATIVE); OCCULT BLOOD URINE 2+ (NEGATIVE); PH URINE 6.5 (4.5-8.0); PROTEIN URINE 2+ (NEGATIVE); SPECIFIC GRAVITY URINE 1.013 (1.005-1.030); UROBILINOGEN URINE 0.2 E.U./dL (0.2-1.0)
[2019-09-17] MEDS: BLOOD SUGAR DIAGNOSTIC STRIP TEST SCH ×22 (00:21→23:35)
[2019-09-17] MEDS: IPRATROPIUM/ALBUTEROL 0.5-3(2.5)MG/3ML NEB HHN SCH ×3 (03:57→20:50)
[2019-09-17 05:40] LABS: PHOSPHORUS 1.7 mg/dL (2.5-4.9)
[2019-09-17] MEDS: AZTREONAM 500 MG in DEXTROSE 5% WATER 50 ML IV SCH ×3 (05:43→21:51)
[2019-09-17 05:52] LABS: HEPATITIS B SURFACE ANTIGEN NEGATIVE
[2019-09-17] MEDS ORDERED: POTASSIUM PHOS,M-BASIC-D-BASIC 20 MMOL in DEXT 5% WATER 243.3333 ML IV ONE (07:00)
[2019-09-17 08:04] LABS: BG BASE EXCESS -5.1 mmol/L (-2.0-2.0); BG CARBOXYHEMOGLOBIN 0.7 % (0.5-1.5); BG DEOXYHEMOGLOBIN 8.1 % (0.0-5.0); BG FRACTION INSPIRED OXYGEN 70; BG HCO3 ACT 20.4 mmol/L (22.0-26.0); BG OXYGEN SATURATION 91.8 % (92.0-98.5); BG OXYHEMOGLOBIN 91.2 % (94.0-97.0); BG PCO2 39.4 mmHg (35.0-45.0); BG PH 7.331 (7.350-7.450); BG PO2 67.7 mmHg (75.0-100.0); BG SAMPLE SITE RIGHT RADIAL; BG TIDAL VOLUME(mL) 500 mL; BG TOTAL HEMOGLOBIN 8.9 g/dL (12.0-18.0); BG VENT MODE VENT - A/C; BG VENT RATE 18 set
[2019-09-17] MEDS: PANTOPRAZOLE SODIUM 40 MG/VIAL IV SCH (08:07)
[2019-09-17] MEDS: ASPIRIN 300MG SUPP PR SCH ×2 (08:07→09:00)
[2019-09-17] MEDS: METRONIDAZOLE 500 MG PREMIX 100 ML IV SCH ×2 (08:08→20:22)
[2019-09-17] MEDS: ACETYLCYSTEINE 100MG/ML 10% VIAL 4ML INH SCH (08:17)
[2019-09-17 08:33] LABS: HEMATOCRIT. 23.5 % (36.0-48.0); HEMOGLOBIN. 7.7 g/dL (12.0-16.0); MEAN CORPUSCULAR HEMOGLOBIN 27.1 pg (28.0-32.0); MEAN CORPUSCULAR VOLUME 83.1 fL (81.0-99.0); MEAN PLATELET VOLUME 10.4 fl (7.4-10.4); PLATELET 131 x1000/uL (130-400); RED BLOOD CELL COUNT 2.83 mill/uL (4.2-5.4); RED CELL DISTRIBUTION WIDTH 14.7 % (11.6-14.6)
[2019-09-17] MEDS: PROPOFOL 10MG/ML 100ML 100 ML IV PRN (08:49)
[2019-09-17 08:55] LABS: PLATELET ESTIMATE NORMAL
[2019-09-17] MEDS: ENOXAPARIN 30MG/0.3ML SYR SUBCUT SCH (09:00)
[2019-09-17] MEDS: PHENYLEPHRINE 80 MG in DEXT 5% WATER 492 ML IV PRN (11:45)
[2019-09-17] MEDS: INSULIN REGULAR (DRIP) 100 UNITS in SODIUM CHLORIDE 0.9% 99 ML IV SCH (11:49)
[2019-09-17] MEDS ORDERED: NOREPINEPHRINE 16 MG in DEXT 5% WATER 234 ML IV PRN (12:30)
[2019-09-17] MEDS ORDERED: LORAZEPAM 2MG/ML CPJ IV PRN (13:30)
[2019-09-17] MEDS: FENTANYL CITRATE/PF 500 MCG in SODIUM CHLORIDE 0.9% 40 ML IV PRN ×2 (14:36→19:36)
[2019-09-17] MEDS ORDERED: VANCOMYCIN 1250MG in DEXTROSE 5% WATER 250ML IV SCH (16:00)
[2019-09-17] MEDS ORDERED: FAT EMULSIONS 500 ML IV SCH (21:00)
[2019-09-17] MEDS ORDERED: TOTAL PARENTERAL NUTRITION 1,600 ML IV SCH (21:00)
[2019-09-17 21:51] LABS: HEMATOCRIT 29.6 % (36.0-48.0); HEMOGLOBIN 10.2 g/dL (12.0-16.0)
[2019-09-17] MEDS ORDERED: VANCOMYCIN 1 G PREMIX 200 ML IV NR (23:30)
[2019-09-18] VITALS (88 sets, daily range): BP systolic 61–152; BP diastolic 35–108
[2019-09-18] MEDS: ACETYLCYSTEINE 100MG/ML 10% VIAL 4ML INH SCH ×3 (00:19→15:42)
[2019-09-18] MEDS: IPRATROPIUM/ALBUTEROL 0.5-3(2.5)MG/3ML NEB HHN SCH ×6 (00:20→20:05)
[2019-09-18] MEDS: BLOOD SUGAR DIAGNOSTIC STRIP TEST SCH ×18 (00:53→17:00)
[2019-09-18] MEDS: FENTANYL CITRATE/PF 1,000 MCG in SODIUM CHLORIDE 0.9% 80 ML IV PRN ×3 (00:54→23:26)
[2019-09-18] MEDS: PHENYLEPHRINE 80 MG in DEXT 5% WATER 492 ML IV PRN ×2 (01:19→18:57)
[2019-09-18] MEDS: ACETAMINOPHEN 650MG SUPP PR PRN ×2 (01:40→16:35)
[2019-09-18] MEDS: INSULIN REGULAR (DRIP) 100 UNITS in SODIUM CHLORIDE 0.9% 99 ML IV SCH (05:10)
[2019-09-18] MEDS: AZTREONAM 500 MG in DEXTROSE 5% WATER 50 ML IV SCH ×3 (05:32→22:33)
[2019-09-18 06:09] LABS: HEMATOCRIT. 29.2 % (36.0-48.0); HEMOGLOBIN. 10.3 g/dL (12.0-16.0); MEAN CORPUSCULAR HEMOGLOBIN 28.7 pg (28.0-32.0); MEAN PLATELET VOLUME 9.5 fl (7.4-10.4); PLATELET 134 x1000/uL (130-400); RED CELL DISTRIBUTION WIDTH 15.9 % (11.6-14.6)
[2019-09-18 06:22] LABS: PHOSPHORUS 3.4 mg/dL (2.5-4.9)
[2019-09-18 08:01] LABS: NUCLEATED RED BLOOD CELLS 1 /100 WBC; PLATELET ESTIMATE NORMAL
[2019-09-18] MEDS ORDERED: KCL 20MEQ/100ML PREMIX 100 ML IV NR ×2 (08:30→23:30)
[2019-09-18] MEDS: PANTOPRAZOLE SODIUM 40 MG/VIAL IV SCH (08:38)
[2019-09-18] MEDS: METRONIDAZOLE 500 MG PREMIX 100 ML IV SCH ×2 (08:38→22:01)
[2019-09-18 08:53] LABS: BG BASE EXCESS -6.9 mmol/L (-2.0-2.0); BG CARBOXYHEMOGLOBIN 0.3 % (0.5-1.5); BG DEOXYHEMOGLOBIN 1.4 % (0.0-5.0); BG FRACTION INSPIRED OXYGEN 100; BG HCO3 ACT 19.7 mmol/L (22.0-26.0); BG METHEMOGLOBIN 0.3 % (0.0-1.5); BG OXYGEN SATURATION 98.6 % (92.0-98.5); BG PCO2 43.8 mmHg (35.0-45.0); BG PO2 147.4 mmHg (75.0-100.0); BG SAMPLE SITE RIGHT RADIAL; BG TIDAL VOLUME(mL) 500 mL; BG TOTAL HEMOGLOBIN 10.5 g/dL (12.0-18.0); BG VENT MODE VENT - A/C; BG VENT RATE 20 set
[2019-09-18] MEDS: CLONIDINE HCL 0.1MG/24HR PATCH TD SCH (09:00)
[2019-09-18] MEDS: ASPIRIN 300MG SUPP PR SCH (09:00)
[2019-09-18] MEDS: ENOXAPARIN 30MG/0.3ML SYR SUBCUT SCH (09:00)
[2019-09-18 13:06] LABS: BG BASE EXCESS -2.5 mmol/L (-2.0-2.0); BG CARBOXYHEMOGLOBIN 0.3 % (0.5-1.5); BG DEOXYHEMOGLOBIN 2.2 % (0.0-5.0); BG FRACTION INSPIRED OXYGEN 95; BG HCO3 ACT 23.5 mmol/L (22.0-26.0); BG METHEMOGLOBIN 0.3 % (0.0-1.5); BG OXYGEN SATURATION 97.8 % (92.0-98.5); BG OXYHEMOGLOBIN 97.2 % (94.0-97.0); BG PCO2 46.1 mmHg (35.0-45.0); BG PH 7.326 (7.350-7.450); BG PO2 114.8 mmHg (75.0-100.0); BG SAMPLE SITE RIGHT BRACHIAL; BG TIDAL VOLUME(mL) 500 mL; BG TOTAL HEMOGLOBIN 10.8 g/dL (12.0-18.0); BG VENT MODE VENT - A/C; BG VENT RATE 20 set
[2019-09-18] MEDS ORDERED: VANCOMYCIN 1250MG in DEXTROSE 5% WATER 250ML IV NR (16:00)
[2019-09-18] MEDS ORDERED: TOTAL PARENTERAL NUTRITION 1,600 ML IV SCH (21:00)
[2019-09-18] MEDS ORDERED: DIGOXIN 500MCG/2ML AMP IV NR (21:30)
[2019-09-19] VITALS (100 sets, daily range): BP systolic 59–143; BP diastolic 23–93
[2019-09-19] MEDS: IPRATROPIUM/ALBUTEROL 0.5-3(2.5)MG/3ML NEB HHN SCH ×6 (00:05→20:12)
[2019-09-19] MEDS: ACETYLCYSTEINE 100MG/ML 10% VIAL 4ML INH SCH ×3 (00:05→16:38)
[2019-09-19] MEDS ORDERED: DEXTROSE 50% WATER 50ML SYRINGE IV PRN (00:30)
[2019-09-19] MEDS: BLOOD SUGAR DIAGNOSTIC STRIP TEST SCH ×5 (00:46→23:21)
[2019-09-19] MEDS: INSULIN LISPRO 100 UNITS/ML SUBCUT SCH ×5 (00:51→23:21)
[2019-09-19] MEDS ORDERED: SODIUM BICARBONATE 8.4% 1 MEQ/ML 50ML SYR IV NR (01:15)
[2019-09-19] MEDS: PHENYLEPHRINE 80 MG in DEXT 5% WATER 492 ML IV PRN ×2 (03:40→13:09)
[2019-09-19 05:36] LABS: BASOPHILS % 0.3 % (0.0-2.0); EOSINOPHILS % 0.5 % (0.0-5.0); HEMOGLOBIN. 10.1 g/dL (12.0-16.0); LYMPHOCYTES % 14.3 % (20.0-50.0); MEAN CORPUSCULAR HEMOGLOBIN 26.5 pg (28.0-32.0); MEAN CORPUSCULAR VOLUME 81.2 fL (81.0-99.0); MEAN PLATELET VOLUME 10.6 fl (7.4-10.4); MONOCYTES % 2.5 % (2.0-8.0); NEUTROPHILS % 82.4 % (40.0-76.0); PLATELET 91 x1000/uL (130-400); RED BLOOD CELL COUNT 3.82 mill/uL (4.2-5.4); RED CELL DISTRIBUTION WIDTH 16.1 % (11.6-14.6)
[2019-09-19] MEDS: AZTREONAM 500 MG in DEXTROSE 5% WATER 50 ML IV SCH ×3 (05:42→22:32)
[2019-09-19] MEDS ORDERED: BLOOD SUGAR DIAGNOSTIC STRIP TEST SCH (06:00)
[2019-09-19] MEDS ORDERED: INSULIN LISPRO 100 UNITS/ML SUBCUT SCH (07:00)
[2019-09-19 07:35] LABS: BG BASE EXCESS -2.9 mmol/L (-2.0-2.0); BG CARBOXYHEMOGLOBIN 0.5 % (0.5-1.5); BG DEOXYHEMOGLOBIN 9.4 % (0.0-5.0); BG HCO3 ACT 23.8 mmol/L (22.0-26.0); BG METHEMOGLOBIN 0.3 % (0.0-1.5); BG OXYGEN SATURATION 90.5 % (92.0-98.5); BG OXYHEMOGLOBIN 89.8 % (94.0-97.0); BG PCO2 50.2 mmHg (35.0-45.0); BG PH 7.294 (7.350-7.450); BG PO2 62.7 mmHg (75.0-100.0); BG SAMPLE SITE RIGHT BRACHIAL; BG TIDAL VOLUME(mL) 500 mL; BG TOTAL HEMOGLOBIN 10.5 g/dL (12.0-18.0); BG VENT MODE VENT - A/C; BG VENT RATE 20 set
[2019-09-19] MEDS: PANTOPRAZOLE SODIUM 40 MG/VIAL IV SCH (08:28)
[2019-09-19] MEDS: METRONIDAZOLE 500 MG PREMIX 100 ML IV SCH ×2 (08:28→21:11)
[2019-09-19] MEDS: ENOXAPARIN 30MG/0.3ML SYR SUBCUT SCH (09:00)
[2019-09-19] MEDS: FENTANYL CITRATE/PF 1,000 MCG in SODIUM CHLORIDE 0.9% 80 ML IV PRN ×2 (10:00→21:14)
[2019-09-19 14:55] LABS: BG BASE EXCESS -3.6 mmol/L (-2.0-2.0); BG CARBOXYHEMOGLOBIN 0.3 % (0.5-1.5); BG DEOXYHEMOGLOBIN 3.2 % (0.0-5.0); BG FRACTION INSPIRED OXYGEN 100; BG HCO3 ACT 21.7 mmol/L (22.0-26.0); BG METHEMOGLOBIN 0.3 % (0.0-1.5); BG OXYGEN SATURATION 96.8 % (92.0-98.5); BG OXYHEMOGLOBIN 96.2 % (94.0-97.0); BG PCO2 39.8 mmHg (35.0-45.0); BG PH 7.354 (7.350-7.450); BG PO2 93.4 mmHg (75.0-100.0); BG SAMPLE SITE RIGHT BRACHIAL; BG TIDAL VOLUME(mL) 550 mL; BG TOTAL HEMOGLOBIN 9.6 g/dL (12.0-18.0); BG VENT MODE VENT - A/C; BG VENT RATE 24 set
[2019-09-19] MEDS ORDERED: TOTAL PARENTERAL NUTRITION 1,600 ML IV SCH (21:00)
[2019-09-20] VITALS (100 sets, daily range): BP systolic 81–187; BP diastolic 27–132
[2019-09-20] MEDS: ACETYLCYSTEINE 100MG/ML 10% VIAL 4ML INH SCH ×3 (00:16→16:00)
[2019-09-20] MEDS: IPRATROPIUM/ALBUTEROL 0.5-3(2.5)MG/3ML NEB HHN SCH ×6 (00:16→21:16)
[2019-09-20] MEDS: AZTREONAM 500 MG in DEXTROSE 5% WATER 50 ML IV SCH ×3 (05:02→22:26)
[2019-09-20] MEDS: BLOOD SUGAR DIAGNOSTIC STRIP TEST SCH ×4 (05:34→23:50)
[2019-09-20] MEDS: INSULIN LISPRO 100 UNITS/ML SUBCUT SCH ×4 (05:35→23:50)
[2019-09-20 06:02] LABS: HEMATOCRIT. 29.1 % (36.0-48.0); HEMOGLOBIN. 9.5 g/dL (12.0-16.0); MEAN CORPUSCULAR HEMOGLOBIN 26.7 pg (28.0-32.0); MEAN CORPUSCULAR VOLUME 81.6 fL (81.0-99.0); RED BLOOD CELL COUNT 3.57 mill/uL (4.2-5.4); RED CELL DISTRIBUTION WIDTH 16.2 % (11.6-14.6)
[2019-09-20] MEDS: FENTANYL CITRATE/PF 1,000 MCG in SODIUM CHLORIDE 0.9% 80 ML IV PRN ×2 (07:35→21:10)
[2019-09-20 07:49] LABS: BG BASE EXCESS -3.2 mmol/L (-2.0-2.0); BG CARBOXYHEMOGLOBIN 0.3 % (0.5-1.5); BG HCO3 ACT 21.9 mmol/L (22.0-26.0); BG METHEMOGLOBIN 0.3 % (0.0-1.5); BG OXYHEMOGLOBIN 97.4 % (94.0-97.0); BG PCO2 39.3 mmHg (35.0-45.0); BG PH 7.363 (7.350-7.450); BG PO2 121.2 mmHg (75.0-100.0); BG SAMPLE SITE RIGHT RADIAL; BG TIDAL VOLUME(mL) 550 mL; BG TOTAL HEMOGLOBIN 9.2 g/dL (12.0-18.0); BG VENT MODE VENT - A/C; BG VENT RATE 24 set
[2019-09-20] MEDS: PANTOPRAZOLE SODIUM 40 MG/VIAL IV SCH (08:15)
[2019-09-20] MEDS: METRONIDAZOLE 500 MG PREMIX 100 ML IV SCH ×2 (08:15→20:54)
[2019-09-20 08:41] LABS: PLATELET ESTIMATE DECREASED
[2019-09-20 08:42] LABS: MEAN PLATELET VOLUME 10.7 fl (7.4-10.4); PLATELET 70 x1000/uL (130-400)
[2019-09-20] MEDS: PHENYLEPHRINE 80 MG in DEXT 5% WATER 492 ML IV PRN (16:25)
[2019-09-20] MEDS ORDERED: TOTAL PARENTERAL NUTRITION 1,600 ML IV SCH (21:00)
[2019-09-20] MEDS: HYDRALAZINE 20MG/ML VIAL IV PRN (23:20)
[2019-09-21] VITALS (38 sets, daily range): BP systolic 61–168; BP diastolic 24–70
[2019-09-21] MEDS: IPRATROPIUM/ALBUTEROL 0.5-3(2.5)MG/3ML NEB HHN SCH ×3 (00:22→08:17)
[2019-09-21 05:31] LABS: HEMATOCRIT. 27.3 % (36.0-48.0); MEAN CORPUSCULAR HEMOGLOBIN 26.3 pg (28.0-32.0); RED BLOOD CELL COUNT 3.41 mill/uL (4.2-5.4); RED CELL DISTRIBUTION WIDTH 15.4 % (11.6-14.6)
[2019-09-21] MEDS: INSULIN LISPRO 100 UNITS/ML SUBCUT SCH (06:00)
[2019-09-21 06:15] LABS: BG BASE EXCESS -8.5 mmol/L (-2.0-2.0); BG CARBOXYHEMOGLOBIN 0.1 % (0.5-1.5); BG DEOXYHEMOGLOBIN 13.5 % (0.0-5.0); BG FRACTION INSPIRED OXYGEN 100; BG HCO3 ACT 18.6 mmol/L (22.0-26.0); BG METHEMOGLOBIN 0.3 % (0.0-1.5); BG OXYGEN SATURATION 86.4 % (92.0-98.5); BG OXYHEMOGLOBIN 86.1 % (94.0-97.0); BG PCO2 45.4 mmHg (35.0-45.0); BG PO2 60.6 mmHg (75.0-100.0); BG SAMPLE SITE RIGHT BRACHIAL; BG TIDAL VOLUME(mL) 550 mL; BG TOTAL HEMOGLOBIN 9.5 g/dL (12.0-18.0); BG VENT MODE VENT - A/C; BG VENT RATE 24 set
[2019-09-21] MEDS ORDERED: SODIUM BICARBONATE 8.4% 1 MEQ/ML 50ML SYR IV ONE (06:30)
[2019-09-21] MEDS: AZTREONAM 500 MG in DEXTROSE 5% WATER 50 ML IV SCH (06:37)
[2019-09-21] MEDS: BLOOD SUGAR DIAGNOSTIC STRIP TEST SCH (06:41)
[2019-09-21] MEDS ORDERED: KCL 20MEQ/100ML PREMIX 100 ML IV NR (08:00)
[2019-09-21] MEDS ORDERED: MORPHINE SULFATE 250 MG in DEXT 5% WATER 225 ML IV PRN (09:30)
[2019-09-21 09:32] LABS: MEAN PLATELET VOLUME 11.1 fl (7.4-10.4); PLATELET 69 x1000/uL (130-400)
[2019-09-21 09:34] LABS: PLATELET ESTIMATE DECREASED
[2019-09-21] MEDS ORDERED: HALOPERIDOL LACTATE 5MG/ML VIAL IM PRN (09:45)
[2019-09-21] MEDS ORDERED: LORAZEPAM 2MG/ML CPJ IV PRN (09:45)
== END 2019-09-21 10:20 | disposition expired | DRG 853 ==
LOC: ER 17:10 → 7WST 22:32 → EDBEDREQ 22:35 → EDBEDREQTM 22:35 → ENRESERV 22:39 → MICUNO 09-15 08:29
PROVIDERS: ADMIT Family Medicine Adult Medicine; ATTEND Family Medicine Adult Medicine
PROC: 0DN80ZZ Release Small Intestine, Open Approach (ICD-10-PCS; principal; 2019-09-15)
PROC: 0DB80ZZ Excision of Small Intestine, Open Approach (ICD-10-PCS; 2019-09-15)
PROC: 5A1955Z Respiratory Ventilation, Greater than 96 Consecutive Hours (ICD-10-PCS; 2019-09-15)
PROC: 0BH17EZ Insertion of Endotracheal Airway into Trachea, Via Natural or Artificial Opening (ICD-10-PCS; 2019-09-15)
PROC: 05HY33Z Insertion of Infusion Device into Upper Vein, Percutaneous Approach (ICD-10-PCS; 2019-09-15)
PROC: B54MZZA Ultrasonography of Right Upper Extremity Veins, Guidance (ICD-10-PCS; 2019-09-15)
PROC: 02HV33Z Insertion of Infusion Device into Superior Vena Cava, Percutaneous Approach (ICD-10-PCS; 2019-09-16)
PROC: B548ZZA Ultrasonography of Superior Vena Cava, Guidance (ICD-10-PCS; 2019-09-16)
PROC: 5A1D70Z Performance of Urinary Filtration, Intermittent, Less than 6 Hours Per Day (ICD-10-PCS; 2019-09-16)
PROC: 30233N1 Transfusion of Nonautologous Red Blood Cells into Peripheral Vein, Percutaneous Approach (ICD-10-PCS; 2019-09-17)
PROC: 5A1D70Z Performance of Urinary Filtration, Intermittent, Less than 6 Hours Per Day (ICD-10-PCS; 2019-09-19)
DX: A41.02 Sepsis due to Methicillin resistant Staphylococcus aureus (principal); J18.1 Lobar pneumonia, unspecified organism; J96.01 Acute respiratory failure with hypoxia; R65.21 Severe sepsis with septic shock; N18.6 End stage renal disease; K56.609 Unspecified intestinal obstruction, unspecified as to partial versus complete obstruction; I13.2 Hypertensive heart and chronic kidney disease with heart failure and with stage 5 chronic kidney disease, or end stage renal disease; N17.9 Acute kidney failure, unspecified; E46 Unspecified protein-calorie malnutrition; E87.4 Mixed disorder of acid-base balance; J44.0 Chronic obstructive pulmonary disease with (acute) lower respiratory infection; K55.9 Vascular disorder of intestine, unspecified; Z99.11 Dependence on respirator [ventilator] status; D63.8 Anemia in other chronic diseases classified elsewhere; E03.9 Hypothyroidism, unspecified; E11.21 Type 2 diabetes mellitus with diabetic nephropathy; E11.22 Type 2 diabetes mellitus with diabetic chronic kidney disease; E11.319 Type 2 diabetes mellitus with unspecified diabetic retinopathy without macular edema; E11.42 Type 2 diabetes mellitus with diabetic polyneuropathy; E11.43 Type 2 diabetes mellitus with diabetic autonomic (poly)neuropathy; E78.5 Hyperlipidemia, unspecified; F32.9 Major depressive disorder, single episode, unspecified; I25.10 Atherosclerotic heart disease of native coronary artery without angina pectoris; I25.2 Old myocardial infarction; I50.9 Heart failure, unspecified; J44.9 Chronic obstructive pulmonary disease, unspecified; K31.84 Gastroparesis; Z79.02 Long term (current) use of antithrombotics/antiplatelets; Z79.4 Long term (current) use of insulin; Z86.718 Personal history of other venous thrombosis and embolism; Z86.73 Personal history of transient ischemic attack (TIA), and cerebral infarction without residual deficits; Z90.710 Acquired absence of both cervix and uterus; Z95.5 Presence of coronary angioplasty implant and graft; Z88.0 Allergy status to penicillin; B19.20 Unspecified viral hepatitis C without hepatic coma; E11.51 Type 2 diabetes mellitus with diabetic peripheral angiopathy without gangrene; E11.65 Type 2 diabetes mellitus with hyperglycemia; Z68.27 Body mass index [BMI] 27.0-27.9, adult; E78.00 Pure hypercholesterolemia, unspecified; E86.9 Volume depletion, unspecified; G40.909 Epilepsy, unspecified, not intractable, without status epilepticus; H54.8 Legal blindness, as defined in USA; I27.21 Secondary pulmonary arterial hypertension; I48.91 Unspecified atrial fibrillation; I49.3 Ventricular premature depolarization; K21.9 Gastro-esophageal reflux disease without esophagitis; K29.70 Gastritis, unspecified, without bleeding; K64.8 Other hemorrhoids; K82.8 Other specified diseases of gallbladder; L50.0 Allergic urticaria; M85.80 Other specified disorders of bone density and structure, unspecified site; R50.82 Postprocedural fever; R62.7 Adult failure to thrive; Z66 Do not resuscitate; Z78.1 Physical restraint status; Z82.3 Family history of stroke; Z82.49 Family history of ischemic heart disease and other diseases of the circulatory system; Z83.3 Family history of diabetes mellitus; Z79.82 Long term (current) use of aspirin
CPT/HCPCS: 36415; 36600; 71045; 71250; 74018; 74176; 74250; 76770; 76937; 80048; 80076; 80202; 81003; 82375; 82550; 82575; 82805; 82962; 83735; 84100; 84132; 84134; 84443; 84478; 85014; 85018; 86803; 86850; 86900; 86920; 87077; 87340; 88307; 93005; 93308; 93970; 94002; 94003; 94640; 94660; 94667; 97162; 97164; 97166; 97530; 99285; C1725; C1752; C1893; C9113; J0360; J1100; J1160; J1170; J1200; J1650; J1815; J1956; J2060; J2250; J2270; J2370; J2405; J2704; J2710; J3010; J3370; J3480; J3490; J7030; J7040; J7050; J7060; J7608; J7620; P9016; Q9963; A4315